=== PATIENT | female | born 1990 | race Caucasian/White ===

== ENCOUNTER 2017-12-06 07:51 | Observation (INO) ==
--- NOTE | 2017-12-06 08:33 | Emergency Department Note ---
ED Disposition Clinical Impression: First trimester , Acute appendicitis Disposition: Still a Patient Condition on Discharge: Fair - Critical Care Critical Care Time: No Attestation: On 12/06/17, the high probability of a clinically significant, sudden or life threatening deterioration of the following system(s) required my full and direct attention, intervention and personal management. The time I documented below is in addition to time spent performing reported procedures but includes the following listed in this critical care notation. Medical Decision Making - Nasim Inquiry Pt receiving controlled substance: No Nasim was queried for this patient: No Vital Signs: 12/06/17 07:55 12/06/17 09:00 12/06/17 10:45 Temperature 97.6 F Temperature Source Oral Pulse Rate [Right Brachial] 85 74 86 Respiratory Rate 20 20 18 Blood Pressure [Right Arm] 126/82 102/64 117/80 Blood Pressure Mean [Right Arm] 96 76 92 Blood Pressure Source [Right Arm] Automatic Cuff Automatic Cuff Automatic Cuff Blood Pressure Position [Right Arm] Sitting Sitting Sitting 02 Sat by Pulse Oximetry 100 100 100 Oxygen Delivery Method Room Air Room Air Room Air 12/06/17 11:17 12/06/17 11:30 Temperature Temperature Source Pulse Rate [Right Brachial] 90 80 Respiratory Rate 18 16 Blood Pressure [Right Arm] 119/75 124/70 Blood Pressure Mean [Right Arm] 89 88 Blood Pressure Source [Right Arm] Automatic Cuff Automatic Cuff Blood Pressure Position [Right Arm] Sitting Sitting 02 Sat by Pulse Oximetry 100 100 Oxygen Delivery Method Room Air Room Air - Lab Data Lab Results 12/06/17 08:35: WBC 13.2 H, RBC 4.47, Hgb 12.9, Hct 38.7, MCV 86.6, MCH 28.9, MCHC 33.4, RDW 13.0, Plt Count 227, MPV 7.7, Neut % (Auto) 86.2 H, Lymph % (Auto ) 9.7 L, Taylor % (Auto) 3.9, Eos % (Auto) 0.2, Baso % (Auto) 0.1, Neut # (Auto) 11.3 H, Lymph # (Auto) 1.3, Taylor # (Auto) 0.5, Eos # (Auto) 0.0, Baso # (Auto) 0.0, Total Counted 100, Neutrophils % (Manual) 89 H, Lymphocytes % (Manual) 7 L , Monocytes % (Manual) 4, Platelet Estimate Normal, RBC Morphology Not Reportable 12/06/17 08:35: Sodium 134 L, Potassium 3.2 L, Chloride 98, Carbon Dioxide 23, Anion Gap 13.0, BUN 8, Creatinine 0.76, Estimated Creat Clear 96, Estimated GFR 92, Est GFR ( Amer) 111, Glucose 114 H, Calcium 10.0, Total Bilirubin 0.4 , AST 14 L, ALT 32, Alkaline Phosphatase 74, Total Protein 8.1, Albumin 4.2, Globulin 3.9 H, Albumin/Globulin Ratio 1.1, HCG, Quant [id number] H 12/06/17 08:35: Lactic Acid 2.1 H 12/06/17 08:57: Blood Type A Positive 12/06/17 10:00: Urine Color Yellow, Urine Appearance Clear, Urine pH 8.0, Ur Specific [place] 1.020, Urine Protein Negative, Urine Glucose (UA) Negative, Urine Ketones Negative, Urine Blood 2+, Urine Nitrate Negative, Urine Bilirubin Negative, Urine Urobilinogen 0.2, Ur Leukocyte Esterase Negative, Urine RBC 5-10 , Urine WBC 3-5, Ur Squamous Epith Cells 5-10, Urine Bacteria 2+, Urine Mucus Trace 12/06/17 10:00: Urine Opiates Screen Positive H, Ur Barbituates Screen Negative , Ur Phencyclidine Scrn Negative, Ur Amphetamines Screen Negative, U Methamphetamines Scrn Negative, U Benzodiazepines Scrn Negative, Urine Cocaine Screen Negative, U Marijuana (THC) Screen Negative Result diagrams: 12/06/17 08:35 12/06/17 08:35 Orders (Tests/Meds): ED MEDICATIONS Discontinued Medications Generic Name Dose Route Start Last Admin Trade Name Freq PRN Reason Stop Dose Admin Diatrizoate Meglum/Diatrizoate Sod 30 ml 12/06/17 11:04 12/06/17 11:22 Gastrografin 66%-10% 30ml PO 12/06/17 11:05 Not Given ONCE ONE Famotidine 20 mg 12/06/17 08:42 12/06/17 08:53 Pepcid 20mg/2ml Vial IV 12/06/17 08:43 20 mg ONCE ONE Administration Sodium Chloride 1,000 mls @ 999 mls/hr 12/06/17 08:45 12/06/17 08:53 Sod Chlor 0.9% 1000ml Bag IV 12/06/17 09:45 999 mls/hr .Q1H1M ONI Administration Sodium Chloride 1,000 mls @ 999 mls/hr 12/06/17 11:15 12/06/17 11:54 Sod Chlor 0.9% 1000ml Bag IV 12/06/17 12:15 999 mls/hr .Q1H1M ONI Administration Morphine Sulfate 2 mg 12/06/17 08:42 12/06/17 08:59 Morphine 2mg/2ml Syringe IV 12/06/17 08:43 2 mg ONCE ONE Administration Potassium Chloride 20 meq 12/06/17 10:18 12/06/17 10:45 Klor-Con 20meq Tablet PO 12/06/17 10:19 Not Given ONCE ONE Promethazine HCl 12.5 mg 12/06/17 08:42 12/06/17 08:53 Phenergan 25mg/Ml 1ml Vial IV 12/06/17 08:43 12.5 mg ONCE ONE Administration Sodium Chloride 25 ml 12/06/17 08:42 12/06/17 08:59 Sod Chlor 0.9% 25ml Bag IV 12/06/17 08:43 25 ml ONCE ONE Administration ORDERS Category Date Time Status Lactic Acid Follow Up (4 hr) Stat Lab 12/06/17 09:05 Ordered Urine Culture Stat Micro 12/06/17 10:00 Received - CT Data CT Scan: Abdomen, Pelvis Time Received: 12:[address] Reviewed: Yes: I have viewed the radiologist's interpretation Preliminary Findings: Abnormal Findings Narrative: IMPRESSION: 1. Acute appendicitis. The appendix is retrocecal. No abscess or free air. 2. Low-density changes in the central aspect of the uterus with some enhancement peripherally consistent with the inferior gestation as seen on recent ultrasound which was nonviable Significant findings called to Cole Rodgers MD on 12/06/2017 12:11 PM. Dictated By: Hernán Nevarez MD Signed By: <Electronically signed by Hernán Nevarez MD in OV> 12/06/17 1212 DD/ 1201 - US Data US Images: Pelvis ED US Reviewed: Yes: I have viewed radiologist's interpretation Findings Narrative: IMPRESSION: 1. Irregular-appearing intrauterine gestational sac with no obvious pole. Nonviable gestation. 2. Right ovary not well demonstrated. No obvious anomalies apparent Medical Decision Narrative: reportted 0932 IMPRESSION: 1. Irregular-appearing intrauterine gestational sac with no obvious pole. Nonviable gestation. 2. Right ovary not well demonstrated. No obvious anomalies apparent [id number] her Ob Dr Harris. Dr Harris called back and I reviewed the above findings with Dr. lAves. Who stated that the ultrasound seems unchanged from her prior ultrasound last week. This was a planned due to a miscarriage. Discussed with Dr. Alves the possibility of appendicitis and she agreed to undergo a CT scan exclude appendicitis. Dr. Alves recommended that the patient to contact our office if she wishes to have a D&C. As the patient is the one O chose to take the pills instead of D&C per Dr. Alves. 1230 IMPRESSION: 1. Acute appendicitis. The appendix is retrocecal. No abscess or free air. 2. Low-density changes in the central aspect of the uterus with some enhancement peripherally consistent with the inferior gestation as seen on recent ultrasound which was nonviable Significant findings called to Cole Rodgers MD on 12/06/2017 12:11 PM. I discussed the above findings with the patient was agreeable to see our local surgeon for appendectomy. Called Dr. Cameron Beck for admission and he agreed to admit the patient he will taken to the operating room. He will admit to his service Female Urogenital HPI - General Chief complaint: OB/Uterine Contractions Stated complaint: abdominal pain Time Seen by Provider: 12/06/17 08:10 Mode of Arrival: Wheelchair Limitations: No Limitations Description of Symptoms (Recalled from ER Triage Doc. by RN): Pt reports her OB told her 4 days ago that she was having a miscarriage, states she was given medication to help her begin to pass the fetus. Pt reports she had a recent d& c so states her OB didn't want to do another d&c right away so she was given medication instead. Pt reports lower back pain, nausea, vomiting and ismael leg pain, reports symptoms began at 11pm lastnight. Pt reports she was 5 weeks gestation. - History of Present Illness HPI Narrative: This is 27 years old white para 0 A1 with a still born child due to prteeclampsia. The patient does not recall her LMP. But she was told 2 weeks ago, that she is 5 weeks so she is approximately 7 weeks. The patient did have a D&C for her second on April 2017 . Also, this she decided to have a miscarriage and her OB doctor did not want to do another D &C she was given a Cytotec prescription on December 03 and I repeated those on December 04. Since then she has been passing brownish vaginal discharge and lose bowel movement. Since last night she has been experiencing sharp lower abdominal cramps radiating to her back associated with nausea and vomited twice. She denies having fever or chills chest pain shortness of breath or palpitations. The patient has a history of clotting disorder and she has been using aspirin on Lovenox up to November 29 when she was asked to stop the medication before starting Cytotec. MD Complaint: vaginal discharge Onset (ago): day(s) (Vaginal discharge for 3 days lower abdominal cramps for 12 hour.) Radiation: other (Pain is radiating to her back.) Severity: severe Quality: cramping, sharp Duration: intermittent Relieving factors: none Exacerbating factors: none Vaginal discharge: other (Brown vaginal discharge.) Sexual activity: yes : yes - Related Data : 3 Para: 0 (Stillbirth.) A: 1 Home Medications Medication Instructions Recorded Confirmed No Known Home Medications 12/06/17 12/06/17 Allergies Allergy/AdvReac Type Severity Reaction Status Date / Time No Known Allergies Allergy Verified 12/06/17 08:04 [facility] History I have reviewed the patient's past medical history: Yes (I reviewed her prescriptions from December 03, 2017. ) Medical History: Denies:: Diabetes Mellitus Type 1, Diabetes Mellitus Type 2 - Social History Alcohol Intake: never - Psychiatric History Expresses thoughts of harming self/others: None Suicide Plan Description: No Plan ROS Obtained: Yes All systems reviewed & no additional complaints Physical Exam - General General appearance: alert, in no apparent distress Comment: She is in discomfort but she is in no cardiopulmonary distress. - Head Head exam: atraumatic, normocephalic, normal inspection - Eye Eye exam: Present: normal appearance, PERRL, EOMI - ENT ENT exam: Present: normal exam, normal oropharynx, mucous membranes moist, TM's normal bilaterally, normal external ear exam - Neck Neck exam: Present: normal inspection, full ROM, trachea midline. Absent: meningismus, lymphadenopathy - Chest Chest inspection: Present: normal inspection, symmetric chest wall rise. Absent : tenderness - Respiratory Respiratory exam: Present: normal lung sounds bilaterally. Absent: respiratory distress - Cardiovascular Cardiovascular exam: Present: regular rate, normal rhythm. Absent: JVD - Abdominal Exam Abdominal exam: Present: soft, tenderness, normal bowel sounds, other (Lower abdominal tenderness with no rebound or cross tenderness no guarding no rigidity. ). Absent: distention, guarding, rebound, rigidity - External exam: Present: normal external exam Bimanual exam: Present: right adnexal tenderness, other (VV WNL, CX is closed, uterus small retroverted and minute brownish vaginal discharge. ). Absent: cervical motion tenderness, adnexal tenderness - Extremities Exam Extremities exam: Present: normal inspection, full ROM, normal capillary refill. Absent: calf tenderness - Back Exam Back exam: Present: normal inspection. Absent: tenderness - Neurological Exam Neurological exam: Present: alert, oriented X3, CN II-XII intact, motor sensory deficit, reflexes normal - Psychiatric Psychiatric exam: Present: normal affect, normal mood - Skin Skin exam: Present: warm, dry, intact, normal color - Lymphatic Lymphatic Findings: no adenopathy
[2017-12-06 08:52] LABS: Basophils % 0.1 % (0.1-2.0); Eosinophils % 0.2 % (0.1-12.0); Hematocrit 38.7 % (37.0-47.0); Hemoglobin 12.9 g/dL (12.2-16.2); Lymphocytes # 1.3 K/mm3 (0.7-4.5); Lymphocytes % 9.7 K/mm3 (10-50); Mean Corpuscular HGB Conc 33.4 g/dL (31.8-35.4); Mean Corpuscular Hemoglobin 28.9 pg (27.0-31.2); Mean Corpuscular Volume 86.6 fl (81-99); Mean Platelet Volume 7.7 fl (7.4-10.4); Monocytes # 0.5 K/mm3 (0.1-1.0); Monocytes % 3.9 % (1.7-9.3); Neutrophils # 11.3 K/mm3 (1.8-7.8); Neutrophils % 86.2 % (37.0-80.0); Platelet Count 227 K/mm3 (142-424); Red Blood Count 4.47 M/mm3 (4.20-5.40); White Blood Count 13.2 K/mm3 (4.8-10.8)
[2017-12-06 09:07] LABS: Potassium 3.2 mmoL/L (3.5-5.1)
[2017-12-06 09:08] LABS: Albumin Level 4.2 gm/dL (3.4-5.0); Albumin/Globulin Ratio 1.1 (1.1-1.8); Bilirubin,Total 0.4 mg/dL (0.2-1.0); Globulin 3.9 gm/dl (1.3-3.2); Total Protein,Serum 8.1 gm/dL (6.4-8.2)
[2017-12-06 09:37] LABS: Lymphocytes % 7 % (10-50); Monocytes % 4 % (2-9); Neutrophils % 89 % (42-76); Total Cells Counted 100
[2017-12-06 10:06] LABS: Appearance,Urine CLEAR (Clear); Bilirubin,Urine Negative (Negative); Blood, Urine 2+ (Negative); Color,Urine YELLOW (Yellow); Glucose,Urine (UA) Negative (Negative); Ketones,Urine Negative (Negative); Leukocyte Esterase,Urine Negative (Negative); Microscopic, Urine URINE MICROSCOPIC (MICROSCOPIC); Protein,Urine Negative (Negative); Urobilinogen,Urine 0.2 EU/dl (0.2)
[2017-12-06 10:13] LABS: Amphetamine/Metha Screen,Urine Negative ng/mL (<1000); Barbiturates Screen,Urine Negative ng/mL (<200); Benzodiazepines Screen,Urine Negative ng/mL (200); Cannabinoid Screen,Urine Negative ng/mL (<50); Cocaine Screen,Urine Negative ng/g (<300); Methadone Screen,Urine Negative ng/mL (<300); Opiate Screen,Urine Positive ng/mL (<300); Phencyclidine Screen,Urine Negative ng/mL (<25)
[2017-12-06 10:17] LABS: Bacteria,Urine 2+ /lpf; Mucus,Urine Trace /lpf
--- NOTE | 2017-12-06 13:16 | Pharmacy Consult Notes ---
[facility] Pharmacy VTE Monitoring - Patient Demographics Admission date: 12/06/17 Report Date: 12/06/17 Time: 13:15 Allergies/Adverse Reactions: Patient Allergies No Known Allergies Allergy (Verified 12/06/17 08:04) Height: 1.5 m Weight: 53.977 kg Patient Problems: Current Active Problems First trimester (Acute) Acute appendicitis (Acute) - VTE Risk Labs: VTE Related Lab Results Hgb 12.9 g/dL (12.2-16.2) 12/06/17 08:35 Hct 38.7 % (37.0-47.0) 12/06/17 08:35 Plt Count 227 K/mm3 (142-424) 12/06/17 08:35 BUN 8 mg/dL (7-18) 12/06/17 08:35 Creatinine 0.76 mg/dL (0.55-1.02) 12/06/17 08:35 Estimated Creat Clear 96 mL/min (0-300) 12/06/17 08:35 Clinical Trial Participant: No - Prophylaxis VTE Prophylaxis Ordered?: Yes Types of VTE Prophylaxis: TEDS Knee High
--- NOTE | 2017-12-06 14:14 | Progress Note ---
[facility] Anesthesia Checklist - Patient Identification Patient Identification: Arm Band, Verbal (Name & ) - Structural Data Admitted From: Home Planned Operative Procedure/s: lap appy Consent for Planned Operative Procedure(s) Verified: Yes Verified Documents: Surgical Consent - NPO Status Verified Time NPO: 22:00 - Chart Verification Results Verified: CBC, BMP - Additional verifications Patient : No Anesthesia Reactions: No Hx Blood Transfusions: No Blood Transfusion Reaction: No Cephalosporin Allergy: No Previous Colonoscopy: No - Cardiovascular Assessment Heart Sounds: S1 & S2 Pulse Strength: Baseline Pulse Rhythm: Regular Peripheral Edema: No - Airway Assessment C-Spine Mobility Assessed: Yes TMJ Mobility Assessed: Yes Dentition: Good Dentition - Neurological Assessment Level of Consciousness: Awake, Alert, Appropriate Hx Seizures: No Numbness or tingling in extremities: No - Anesthesia Plan Anesthesia Risk discussed: Yes Anesthesia Plan: Verified ASA Class: II Anesthesia Type: MAC [facility] Anesthesia HX I have reviewed the patient's past medical history: Yes Medical History: Denies:: Cancer, Diabetes Mellitus Type 1, Diabetes Mellitus Type 2, MRSA, Seizures Other Medical History: Denies: Blood Transfusion Reaction Other Surgeries: Yes: Dilation and Curettage Amputation: No Fractures: No *Family Hx:: Heart Attack, Hyperlipidemia, Hypertension
--- NOTE | 2017-12-06 15:09 | History & Physical Report ---
HPI HPI: ABDOMINAL PAIN Patient is a 27-year-old white female. She had recently been placed on Cytotec. This was several days ago. She states that yesterday evening she had developed some periumbilical pain. She thought this may be cramping however it became much more severe today and more localized to the right lower quadrant. She presented to the emergency department where she was seen and evaluated. She did undergo transvaginal ultrasound which revealed nonviable gestational sac. She underwent CT scan of the abdomen and pelvis which revealed findings reportedly of non-complicated equivocal appendicitis. Surgery was contacted and plan was made for admission and preparation for appendectomy. [facility] History Medical History: Denies:: Cancer, Diabetes Mellitus Type 1, Diabetes Mellitus Type 2, MRSA, Seizures Other Medical History: Denies: Blood Transfusion Reaction Other Surgeries: Yes: Dilation and Curettage Amputation: No Fractures: No - *Social History Educational Level: Completed High School Smoking Status: Never smoker Alcohol Intake: never Occupational Status: unemployed Housing: house - Psychiatric History Expresses thoughts of harming self/others: None Suicide Plan Description: No Plan *Family Hx:: Heart Attack, Hyperlipidemia, Hypertension Para: 0 (Stillbirth.) A: 1 Meds Home Medications Medication Instructions Recorded Confirmed Type No Known Home Medications 12/06/17 12/06/17 History Allergies Allergy/AdvReac Type Severity Reaction Status Date / Time No Known Allergies Allergy Verified 12/06/17 08:04 Exam Vital signs and Labs for Last 24 Hours: Temp Pulse Resp BP Pulse Ox 98.1 F 86 18 121/77 100 12/06/17 13:42 12/06/17 13:42 12/06/17 13:42 12/06/17 13:42 12/06/17 13:42 Laboratory Results - last 24 hr 12/06/17 08:35: WBC 13.2 H, RBC 4.47, Hgb 12.9, Hct 38.7, MCV 86.6, MCH 28.9, MCHC 33.4, RDW 13.0, Plt Count 227, MPV 7.7, Neut % (Auto) 86.2 H, Lymph % (Auto ) 9.7 L, [place] % (Auto) 3.9, Eos % (Auto) 0.2, Baso % (Auto) 0.1, Neut # (Auto) 11.3 H, Lymph # (Auto) 1.3, [place] # (Auto) 0.5, Eos # (Auto) 0.0, Baso # (Auto) 0.0, Total Counted 100, Neutrophils % (Manual) 89 H, Lymphocytes % (Manual) 7 L , Monocytes % (Manual) 4, Platelet Estimate Normal, RBC Morphology Not Reportable 12/06/17 08:35: Sodium 134 L, Potassium 3.2 L, Chloride 98, Carbon Dioxide 23, Anion Gap 13.0, BUN 8, Creatinine 0.76, Estimated Creat Clear 96, Estimated GFR 92, Est GFR ( Amer) 111, Glucose 114 H, Calcium 10.0, Total Bilirubin 0.4 , AST 14 L, ALT 32, Alkaline Phosphatase 74, Total Protein 8.1, Albumin 4.2, Globulin 3.9 H, Albumin/Globulin Ratio 1.1, HCG, Quant [id number] H 12/06/17 08:35: Lactic Acid 2.1 H 12/06/17 08:57: Blood Type A Positive 12/06/17 10:00: Urine Color Yellow, Urine Appearance Clear, Urine pH 8.0, Ur Specific [place] 1.020, Urine Protein Negative, Urine Glucose (UA) Negative, Urine Ketones Negative, Urine Blood 2+, Urine Nitrate Negative, Urine Bilirubin Negative, Urine Urobilinogen 0.2, Ur Leukocyte Esterase Negative, Urine RBC 5-10 , Urine WBC 3-5, Ur Squamous Epith Cells 5-10, Urine Bacteria 2+, Urine Mucus Trace 12/06/17 10:00: Urine Opiates Screen Positive H, Ur Barbituates Screen Negative , Ur Phencyclidine Scrn Negative, Ur Amphetamines Screen Negative, U Methamphetamines Scrn Negative, U Benzodiazepines Scrn Negative, Urine Cocaine Screen Negative, U Marijuana (THC) Screen Negative 12/06/17 13:00: Lactic Acid Fup @ 4Hr 0.9 I & O for Last 24 hours: Intake & Output 12/04/17 12/05/17 12/06/17 12/07/17 11:59 11:59 11:59 11:59 Intake Total 1999 Balance 1999 Weight 119 lb 119 lb - Constitutional no acute distress - *Routine Respiratory Exam Present: CTA bilaterally - *Routine Cardiovascular Exam Present: RRR - *Routine Abdominal Exam Present: soft, tenderness Comments: She has tenderness with voluntary guarding and rebound in the right lower quadrant. Results - Results Lab Results Last 24 Hours:: Laboratory Results - last 24 hr 12/06/17 08:35: WBC 13.2 H, RBC 4.47, Hgb 12.9, Hct 38.7, MCV 86.6, MCH 28.9, MCHC 33.4, RDW 13.0, Plt Count 227, MPV 7.7, Neut % (Auto) 86.2 H, Lymph % (Auto ) 9.7 L, [place] % (Auto) 3.9, Eos % (Auto) 0.2, Baso % (Auto) 0.1, Neut # (Auto) 11.3 H, Lymph # (Auto) 1.3, [place] # (Auto) 0.5, Eos # (Auto) 0.0, Baso # (Auto) 0.0, Total Counted 100, Neutrophils % (Manual) 89 H, Lymphocytes % (Manual) 7 L , Monocytes % (Manual) 4, Platelet Estimate Normal, RBC Morphology Not Reportable 12/06/17 08:35: Sodium 134 L, Potassium 3.2 L, Chloride 98, Carbon Dioxide 23, Anion Gap 13.0, BUN 8, Creatinine 0.76, Estimated Creat Clear 96, Estimated GFR 92, Est GFR ( Amer) 111, Glucose 114 H, Calcium 10.0, Total Bilirubin 0.4 , AST 14 L, ALT 32, Alkaline Phosphatase 74, Total Protein 8.1, Albumin 4.2, Globulin 3.9 H, Albumin/Globulin Ratio 1.1, HCG, Quant [id number] H 12/06/17 08:35: Lactic Acid 2.1 H 12/06/17 08:57: Blood Type A Positive 12/06/17 10:00: Urine Color Yellow, Urine Appearance Clear, Urine pH 8.0, Ur Specific [place] 1.020, Urine Protein Negative, Urine Glucose (UA) Negative, Urine Ketones Negative, Urine Blood 2+, Urine Nitrate Negative, Urine Bilirubin Negative, Urine Urobilinogen 0.2, Ur Leukocyte Esterase Negative, Urine RBC 5-10 , Urine WBC 3-5, Ur Squamous Epith Cells 5-10, Urine Bacteria 2+, Urine Mucus Trace 12/06/17 10:00: Urine Opiates Screen Positive H, Ur Barbituates Screen Negative , Ur Phencyclidine Scrn Negative, Ur Amphetamines Screen Negative, U Methamphetamines Scrn Negative, U Benzodiazepines Scrn Negative, Urine Cocaine Screen Negative, U Marijuana (THC) Screen Negative 12/06/17 13:00: Lactic Acid Fup @ 4Hr 0.9 Assessment and Plan - Assessment and plan all Dx Assessment and Plan for all problems:: Clinical scenario and objective findings consistent with acute appendicitis. Plan for laparoscopic with possibly open appendectomy.
--- NOTE | 2017-12-06 16:22 | Operative Note ---
Date of procedure: 12/06/17 Pre-op Diagnosis:: Acute appendicitis Post-op Diagnosis:: Same Procedure performed:: Laparoscopic appendectomy Surgeon:: Cameron Beck MD Anesthesia: GETEvy Estimated blood loss (mL): 15 Clinical Note:: Patient is a 27-year-old white female. Beginning yesterday evening approximately 11 PM she had developed some periumbilical pain. It became more severe and more localized to the right lower quadrant. She had presented to [facility] emergency department where she was seen and evaluated. Of note, the patient had recently started Cytotec. [facility] emergency department included a CT scan which revealed findings consistent with unequivocal appendicitis. Surgery was contacted and she was admitted for inpatient management and preparations for appendectomy. Operative findings:: She had an acute suppurative appendicitis in a retrocecal location. Operative note:: Consent was obtained. Patient was taken to the operating room. She was given preoperative intravenous antibiotics. General anesthesia was induced via endotracheal tube. Soares catheter was placed. Abdomen was prepped and draped in the standard surgical fashion. Subumbilical skin incision was made and while performing abdominal wall lift Veress needle was inserted. CO2 pneumoperitoneum was achieved to 15 mmHg. 12 mm optical trocar was inserted the umbilicus. There is noted to be some cloudy fluid in the right pelvis and paracolic gutter. She was positioned in Trendelenburg left side down. 5 mm suprapubic trocar was inserted. Additional 5 mm trocar was inserted in the right upper abdomen. The cecum was retracted medially and the appendix was identified in a retrocecal location. It was acutely inflamed and suppurative. Appendix was grasped with an endoscopic Beaver. The lateral peritoneal attachments were divided with Toño ultrasonic harmonic tyshawn. Mobilization of the appendix was rather difficult due to the retrocecal location. There was a lot of periappendiceal edema. Ultimately the appendix was freed from its retrocecal location. The mesoappendix was carefully divided with Toño ultrasonic harmonic tyshawn. The pedis artery was carefully coagulated with Toño ultrasonic harmonic tyshawn. Dissection was carried down to the appendiceal base. The appendix was divided at its base with an endoscopic BERNARDO linear cutting stapling device. The appendix was placed within an Endo Catch retrieval device and removed from the peritoneal cavity via the umbilical trocar site. Pericecal location and pelvis were irrigated and aspirated until clear. There is good hemostasis. Trochars were removed as CO2 pneumoperitoneum was evacuated. Fascia at the umbilicus was closed with 0 Vicryl suture. Local anesthetic was infiltrated. Skin incisions were closed with 4-0 Monocryl in a subcuticular fashion. Steri-Strips and clean dry sterile dressings were applied. Condition: stable Disposition: PACU Specimens:: Appendix Complications:: None immediately apparent
--- NOTE | 2017-12-06 16:28 | Progress Note ---
[facility] Anesthesia Record Part I Intake, IV Amount: 1,000 Estimated blood loss (mL): 0 Urine output (mL): 200 Blood Pressure: 125/62 SaO2: 98 Pulse Rate: 77 Respiratory Rate: 12 Temperature: 97.7 F Patient is:: Stable Stable to PACU at:: 16:25
--- NOTE | 2017-12-06 16:28 | Progress Note ---
[facility] Anesthesia Record Part II Discharge Time: 16:55 Destination: floor PACU nurse assessment reviewed?: Yes Patient Condition:: Good Anesthesia Complications:: None
[2017-12-07 06:27] LABS: Basophils % 0.1 % (0.1-2.0); Eosinophils % 0.1 % (0.1-12.0); Lymphocytes # 1.6 K/mm3 (0.7-4.5); Lymphocytes % 14.1 K/mm3 (10-50); Mean Corpuscular HGB Conc 32.9 g/dL (31.8-35.4); Mean Corpuscular Hemoglobin 29.4 pg (27.0-31.2); Mean Corpuscular Volume 89.5 fl (81-99); Monocytes # 0.4 K/mm3 (0.1-1.0); Monocytes % 3.9 % (1.7-9.3); Neutrophils # 9.3 K/mm3 (1.8-7.8); Neutrophils % 81.8 % (37.0-80.0); Platelet Count 211 K/mm3 (142-424); Red Blood Count 3.66 M/mm3 (4.20-5.40); Red Cell Distribution Width 13.4 % (11.5-17.5); White Blood Count 11.4 K/mm3 (4.8-10.8)
[2017-12-07 06:37] LABS: Hematocrit 32.6 % (37.0-47.0); Hemoglobin 10.7 g/dL (12.2-16.2)
--- NOTE | 2017-12-07 07:06 | Progress Note ---
Subjective Patient reports: feels better, pain is less Exam Vital signs and Labs for Last 24 Hours: Temp Pulse Resp BP Pulse Ox 97.6 F 77 16 98/57 98 12/07/17 04:00 12/07/17 04:00 12/07/17 04:00 12/07/17 04:00 12/07/17 04:00 Laboratory Results - last 24 hr 12/06/17 08:35: WBC 13.2 H, RBC 4.47, Hgb 12.9, Hct 38.7, MCV 86.6, MCH 28.9, MCHC 33.4, RDW 13.0, Plt Count 227, MPV 7.7, Neut % (Auto) 86.2 H, Lymph % (Auto ) 9.7 L, [place] % (Auto) 3.9, Eos % (Auto) 0.2, Baso % (Auto) 0.1, Neut # (Auto) 11.3 H, Lymph # (Auto) 1.3, [place] # (Auto) 0.5, Eos # (Auto) 0.0, Baso # (Auto) 0.0, Total Counted 100, Neutrophils % (Manual) 89 H, Lymphocytes % (Manual) 7 L , Monocytes % (Manual) 4, Platelet Estimate Normal, RBC Morphology Not Reportable 12/06/17 08:35: Sodium 134 L, Potassium 3.2 L, Chloride 98, Carbon Dioxide 23, Anion Gap 13.0, BUN 8, Creatinine 0.76, Estimated Creat Clear 96, Estimated GFR 92, Est GFR ( Amer) 111, Glucose 114 H, Calcium 10.0, Total Bilirubin 0.4 , AST 14 L, ALT 32, Alkaline Phosphatase 74, Total Protein 8.1, Albumin 4.2, Globulin 3.9 H, Albumin/Globulin Ratio 1.1, HCG, Quant [id number] H 12/06/17 08:35: Lactic Acid 2.1 H 12/06/17 08:57: Blood Type A Positive 12/06/17 10:00: Urine Color Yellow, Urine Appearance Clear, Urine pH 8.0, Ur Specific [place] 1.020, Urine Protein Negative, Urine Glucose (UA) Negative, Urine Ketones Negative, Urine Blood 2+, Urine Nitrate Negative, Urine Bilirubin Negative, Urine Urobilinogen 0.2, Ur Leukocyte Esterase Negative, Urine RBC 5-10 , Urine WBC 3-5, Ur Squamous Epith Cells 5-10, Urine Bacteria 2+, Urine Mucus Trace 12/06/17 10:00: Urine Opiates Screen Positive H, Ur Barbituates Screen Negative , Ur Phencyclidine Scrn Negative, Ur Amphetamines Screen Negative, U Methamphetamines Scrn Negative, U Benzodiazepines Scrn Negative, Urine Cocaine Screen Negative, U Marijuana (THC) Screen Negative 12/06/17 13:00: Lactic Acid Fup @ 4Hr 0.9 12/06/17 14:42: HCG, Quant [id number] H 12/06/17 15:20: Urine Color Yellow, Urine Appearance Clear, Urine pH 6.0, Ur Specific [place] 1.010, Urine Protein Negative, Urine Glucose (UA) Negative, Urine Ketones Negative, Urine Blood Trace-i, Urine Nitrate Negative, Urine Bilirubin Negative, Urine Urobilinogen 0.2, Ur Leukocyte Esterase Negative, Urine RBC Occasional, Urine WBC Occasional, Ur Squamous Epith Cells Occasional, Urine Bacteria Trace 12/07/17 05:20: WBC 11.4 H, RBC 3.66 L, Hgb 10.7 L D, Hct 32.6 L, MCV 89.5, MCH 29.4, MCHC 32.9, RDW 13.4, Plt Count 211, MPV 8.0, Neut % (Auto) 81.8 H, Lymph % (Auto) 14.1, [place] % (Auto) 3.9, Eos % (Auto) 0.1, Baso % (Auto) 0.1, Neut # ( Auto) 9.3 H, Lymph # (Auto) 1.6, [place] # (Auto) 0.4, Eos # (Auto) 0.0, Baso # ( Auto) 0.0 I & O for Last 24 hours: Intake & Output 12/04/17 12/05/17 12/06/17 12/07/17 11:59 11:59 11:59 11:59 Intake Total 4603 / 4603 Balance 4603 / 4603 Weight 119 lb 122 lb 4 oz - *Routine Abdominal Exam Present: soft Progress Note: A&P Assessment and Plan for All Diagnoses:: Plan for discharge home
--- NOTE | 2017-12-07 07:08 | Discharge Summary ---
General - General Admission date:: 12/06/17 Discharge date: 12/07/17 HPI HPI: ABDOMINAL PAIN Patient is a 27-year-old white female. She had recently been placed on Cytotec by her shook splicer. This was several days ago. She states that evening of she had developed some periumbilical pain. She thought this may be cramping however it became much more severe and more localized to the right lower quadrant. She presented to the emergency department where she was seen and evaluated. She did undergo transvaginal ultrasound which revealed nonviable gestational sac. She underwent CT scan of the abdomen and pelvis which revealed findings reportedly of non-complicated unequivocal appendicitis. Surgery was contacted and plan was made for admission and preparation for appendectomy. Hospital Course Hospital Course: Shortly after admission and arrangements were made for operative intervention patient was taken to the operating room. She underwent successful laparoscopic appendectomy. She was found to have an acute suppurative nonperforated appendicitis. Appendix was in a retrocecal location which may procedure somewhat difficult. Please see operative dictation for complete details. She was admitted postoperatively for continued inpatient management and convalescence. She was continued on perioperative Unasyn. She was given a full liquid diet. Following morning she was feeling better. She was tolerating full liquid diet without difficulty. No nausea. White blood cell count had improved. Plan was made for discharge home. Objective Vital signs: Temp Pulse Resp BP Pulse Ox 97.6 F 77 16 98/57 98 12/07/17 04:00 12/07/17 04:00 12/07/17 04:00 12/07/17 04:00 12/07/17 04:00 Results Labs on day of discharge: Labs from last 24 hours 12/07/17 12/06/17 12/06/17 05:20 15:20 14:42 WBC 11.4 H RBC 3.66 L Hgb 10.7 L D Hct 32.6 L MCV 89.5 MCH 29.4 MCHC 32.9 RDW 13.4 Plt Count 211 MPV 8.0 Neut % (Auto) 81.8 H Lymph % (Auto) 14.1 [place] % (Auto) 3.9 Eos % (Auto) 0.1 Baso % (Auto) 0.1 Neut # (Auto) 9.3 H Lymph # (Auto) 1.6 [place] # (Auto) 0.4 Eos # (Auto) 0.0 Baso # (Auto) 0.0 Total Counted Neutrophils % (Manual) Lymphocytes % (Manual) Monocytes % (Manual) Platelet Estimate RBC Morphology Sodium Potassium Chloride Carbon Dioxide Anion Gap BUN Creatinine Estimated Creat Clear Estimated GFR Est GFR ( Amer) Glucose Lactic Acid Lactic Acid Fup @ 4Hr Calcium Total Bilirubin AST ALT Alkaline Phosphatase Total Protein Albumin Globulin Albumin/Globulin Ratio HCG, Quant 63062 H Urine Color Yellow Urine Appearance Clear Urine pH 6.0 Ur Specific [place] 1.010 Urine Protein Negative Urine Glucose (UA) Negative Urine Ketones Negative Urine Blood Trace-i Urine Nitrate Negative Urine Bilirubin Negative Urine Urobilinogen 0.2 Ur Leukocyte Esterase Negative Urine RBC Occasional Urine WBC Occasional Ur Squamous Epith Cells Occasional Urine Bacteria Trace Urine Mucus Urine Opiates Screen Ur Barbituates Screen Ur Phencyclidine Scrn Ur Amphetamines Screen U Methamphetamines Scrn U Benzodiazepines Scrn Urine Cocaine Screen U Marijuana (THC) Screen Blood Type 12/06/17 12/06/17 12/06/17 13:00 10:00 10:00 WBC RBC Hgb Hct MCV MCH MCHC RDW Plt Count MPV Neut % (Auto) Lymph % (Auto) [place] % (Auto) Eos % (Auto) Baso % (Auto) Neut # (Auto) Lymph # (Auto) [place] # (Auto) Eos # (Auto) Baso # (Auto) Total Counted Neutrophils % (Manual) Lymphocytes % (Manual) Monocytes % (Manual) Platelet Estimate RBC Morphology Sodium Potassium Chloride Carbon Dioxide Anion Gap BUN Creatinine Estimated Creat Clear Estimated GFR Est GFR ( Amer) Glucose Lactic Acid Lactic Acid Fup @ 4Hr 0.9 Calcium Total Bilirubin AST ALT Alkaline Phosphatase Total Protein Albumin Globulin Albumin/Globulin Ratio HCG, Quant Urine Color Yellow Urine Appearance Clear Urine pH 8.0 Ur Specific [place] 1.020 Urine Protein Negative Urine Glucose (UA) Negative Urine Ketones Negative Urine Blood 2+ Urine Nitrate Negative Urine Bilirubin Negative Urine Urobilinogen 0.2 Ur Leukocyte Esterase Negative Urine RBC 5-10 Urine WBC 3-5 Ur Squamous Epith Cells 5-10 Urine Bacteria 2+ Urine Mucus Trace Urine Opiates Screen Positive H Ur Barbituates Screen Negative Ur Phencyclidine Scrn Negative Ur Amphetamines Screen Negative U Methamphetamines Scrn Negative U Benzodiazepines Scrn Negative Urine Cocaine Screen Negative U Marijuana (THC) Screen Negative Blood Type 12/06/17 12/06/17 12/06/17 08:57 08:35 08:35 WBC RBC Hgb Hct MCV MCH MCHC RDW Plt Count MPV Neut % (Auto) Lymph % (Auto) [place] % (Auto) Eos % (Auto) Baso % (Auto) Neut # (Auto) Lymph # (Auto) [place] # (Auto) Eos # (Auto) Baso # (Auto) Total Counted Neutrophils % (Manual) Lymphocytes % (Manual) Monocytes % (Manual) Platelet Estimate RBC Morphology Sodium 134 L Potassium 3.2 L Chloride 98 Carbon Dioxide 23 Anion Gap 13.0 BUN 8 Creatinine 0.76 Estimated Creat Clear 96 Estimated GFR 92 Est GFR ( Amer) 111 Glucose 114 H Lactic Acid 2.1 H Lactic Acid Fup @ 4Hr Calcium 10.0 Total Bilirubin 0.4 AST 14 L ALT 32 Alkaline Phosphatase 74 Total Protein 8.1 Albumin 4.2 Globulin 3.9 H Albumin/Globulin Ratio 1.1 HCG, Quant 54772 H Urine Color Urine Appearance Urine pH Ur Specific [place] Urine Protein Urine Glucose (UA) Urine Ketones Urine Blood Urine Nitrate Urine Bilirubin Urine Urobilinogen Ur Leukocyte Esterase Urine RBC Urine WBC Ur Squamous Epith Cells Urine Bacteria Urine Mucus Urine Opiates Screen Ur Barbituates Screen Ur Phencyclidine Scrn Ur Amphetamines Screen U Methamphetamines Scrn U Benzodiazepines Scrn Urine Cocaine Screen U Marijuana (THC) Screen Blood Type A Positive 12/06/17 08:35 WBC 13.2 H RBC 4.47 Hgb 12.9 Hct 38.7 MCV 86.6 MCH 28.9 MCHC 33.4 RDW 13.0 Plt Count 227 MPV 7.7 Neut % (Auto) 86.2 H Lymph % (Auto) 9.7 L [place] % (Auto) 3.9 Eos % (Auto) 0.2 Baso % (Auto) 0.1 Neut # (Auto) 11.3 H Lymph # (Auto) 1.3 [place] # (Auto) 0.5 Eos # (Auto) 0.0 Baso # (Auto) 0.0 Total Counted 100 Neutrophils % (Manual) 89 H Lymphocytes % (Manual) 7 L Monocytes % (Manual) 4 Platelet Estimate Normal RBC Morphology Not Reportable Sodium Potassium Chloride Carbon Dioxide Anion Gap BUN Creatinine Estimated Creat Clear Estimated GFR Est GFR ( Amer) Glucose Lactic Acid Lactic Acid Fup @ 4Hr Calcium Total Bilirubin AST ALT Alkaline Phosphatase Total Protein Albumin Globulin Albumin/Globulin Ratio HCG, Quant Urine Color Urine Appearance Urine pH Ur Specific [place] Urine Protein Urine Glucose (UA) Urine Ketones Urine Blood Urine Nitrate Urine Bilirubin Urine Urobilinogen Ur Leukocyte Esterase Urine RBC Urine WBC Ur Squamous Epith Cells Urine Bacteria Urine Mucus Urine Opiates Screen Ur Barbituates Screen Ur Phencyclidine Scrn Ur Amphetamines Screen U Methamphetamines Scrn U Benzodiazepines Scrn Urine Cocaine Screen U Marijuana (THC) Screen Blood Type Discharge Plan - Patient Discharge Instructions ACTIVITY: No heavy lifting DIET: advance to your usual diet - Follow up Plan Follow up with: Cameron Beck MD [Staff Physician] - 12/24/17 Disposition: Home, Self-Senior Care Medications: Home Medications Medication Instructions Recorded Confirmed Type No Known Home Medications 12/06/17 12/06/17 History Prescriptions/Medication Reconciliation: New Hydrocod/Acet 5/325 mg [[place] 5/325mg tablet] 1 - 2 tab PO Q6HP PRN #21 tab PRN Reason: Moderate Pain No Action No Known Home Medications
[2017-12-07 07:34] VITALS: BP 112/73
== END 2017-12-07 09:18 | disposition home or self-care (01) ==
LOC: ER 07:51 → 2ND 07:51
PROVIDERS: ADMIT Surgery; ATTEND Surgery
DX: K35.80 Unspecified acute appendicitis

== ENCOUNTER 2017-12-27 09:34 | Inpatient (IN) ==
[2017-12-27 09:58] LABS: Appearance,Urine CLOUDY (Clear); Bilirubin,Urine Negative (Negative); Blood, Urine 1+ (Negative); Color,Urine YELLOW (Yellow); Glucose,Urine (UA) Negative (Negative); Ketones,Urine 1+ (Negative); Leukocyte Esterase,Urine 2+ (Negative); Microscopic, Urine URINE MICROSCOPIC (MICROSCOPIC); Protein,Urine 1+ (Negative); Specific Gravity, Urine 1.015 (1.005-1.030)
[2017-12-27 10:04] LABS: Basophils % 0.1 % (0.1-2.0); Eosinophils # 0.1 K/mm3 (0.0-0.4); Eosinophils % 0.5 % (0.1-12.0); Hemoglobin 12.3 g/dL (12.2-16.2); Lymphocytes # 1.2 K/mm3 (0.7-4.5); Lymphocytes % 7.3 K/mm3 (10-50); Mean Corpuscular HGB Conc 32.2 g/dL (31.8-35.4); Mean Corpuscular Hemoglobin 27.6 pg (27.0-31.2); Mean Corpuscular Volume 85.6 fl (81-99); Mean Platelet Volume 7.9 fl (7.4-10.4); Neutrophils # 14.1 K/mm3 (1.8-7.8); Neutrophils % 86.1 % (37.0-80.0); Platelet Count 220 K/mm3 (142-424); Red Blood Count 4.45 M/mm3 (4.20-5.40); Red Cell Distribution Width 12.6 % (11.5-17.5); White Blood Count 16.4 K/mm3 (4.8-10.8)
[2017-12-27 10:10] LABS: Bacteria,Urine 4+ /lpf; WBC,Urine 20-50 #/hpf (0-3)
[2017-12-27 10:11] LABS: Albumin Level 3.8 gm/dL (3.4-5.0); Albumin/Globulin Ratio 0.9 (1.1-1.8); Anion Gap 16.4 mEq/L (5-15); Bilirubin,Total 0.9 mg/dL (0.2-1.0); Calcium 9.4 mg/dL (8.5-10.1); Globulin 4.1 gm/dl (1.3-3.2); Potassium 3.4 mmoL/L (3.5-5.1); Total Protein,Serum 7.9 gm/dL (6.4-8.2)
[2017-12-27 10:53] LABS: Lymphocytes % 6 % (10-50); Monocytes % 6 % (2-9); Neutrophils % 86 % (42-76); Total Cells Counted 100
--- NOTE | 2017-12-27 11:57 | Emergency Department Note ---
ED Disposition Clinical Impression: Pyelonephritis Disposition: Admitted As Inpatient Condition on Discharge: Fair Time of Disposition: 11:56 - Critical Care Critical Care Time: No Attestation: On 12/27/17, the high probability of a clinically significant, sudden or life threatening deterioration of the following system(s) required my full and direct attention, intervention and personal management. The time I documented below is in addition to time spent performing reported procedures but includes the following listed in this critical care notation. Medical Decision Making - Medical Records Medical records reviewed: Yes: I reviewed the patient's medical records. - Nasim Inquiry Pt receiving controlled substance: No Vital Signs: 12/27/17 09:46 12/27/17 11:41 12/27/17 12:22 Temperature 101.4 F H 98.4 F 98.1 F Temperature Source Oral Temporal Artery Scan Oral Pulse Rate [Left Radial] 111 H 74 77 Respiratory Rate 22 18 16 Blood Pressure [Right Arm] 111/76 102/54 102/54 Blood Pressure Mean [Right Arm] 87 70 70 Blood Pressure Source [Right Arm] Automatic Cuff Manual Cuff/ Doppler Automatic Cuff Blood Pressure Position [Right Arm] Sitting Sitting Supine 02 Sat by Pulse Oximetry 98 99 99 Oxygen Delivery Method Room Air Room Air - Lab Data Lab results reviewed: Yes: I reviewed the patient's lab results. Lab Results 12/27/17 09:50: Urine Color Yellow, Urine Appearance Cloudy, Urine pH 7.0, Ur Specific [place] 1.015, Urine Protein 1+, Urine Glucose (UA) Negative, Urine Ketones 1+, Urine Blood 1+, Urine Nitrate Positive, Urine Bilirubin Negative, Urine Urobilinogen 2.0, Ur Leukocyte Esterase 2+ A, Urine RBC 5-10, Urine WBC 20 -50, Ur Squamous Epith Cells 5-10, Urine Bacteria 4+ 12/27/17 09:50: WBC 16.4 H, RBC 4.45, Hgb 12.3, Hct 38.0, MCV 85.6, MCH 27.6, MCHC 32.2, RDW 12.6, Plt Count 220, MPV 7.9, Neut % (Auto) 86.1 H, Lymph % (Auto ) 7.3 L, [place] % (Auto) 6.0, Eos % (Auto) 0.5, Baso % (Auto) 0.1, Neut # (Auto) 14.1 H, Lymph # (Auto) 1.2, [place] # (Auto) 1.0, Eos # (Auto) 0.1, Baso # (Auto) 0.0, Total Counted 100, Neutrophils % (Manual) 86 H, Band Neutrophils % 2.0, Lymphocytes % (Manual) 6 L, Monocytes % (Manual) 6, Platelet Estimate Normal 12/27/17 09:50: Sodium 132 L, Potassium 3.4 L, Chloride 95 L, Carbon Dioxide 24 , Anion Gap 16.4 H, BUN 7, Creatinine 1.01, Estimated Creat Clear 74, Estimated GFR 66, Est GFR ( Amer) 80, Glucose 116 H, Calcium 9.4, Total Bilirubin 0.9, AST 10 L, ALT 16, Alkaline Phosphatase 85, Total Protein 7.9, Albumin 3.8, Globulin 4.1 H, Albumin/Globulin Ratio 0.9 L, Amylase 233 H 12/27/17 09:50: Lipase 1338 H 12/27/17 09:50: HCG, Quant 24 H 12/27/17 10:30: Lactic Acid 1.2 Result diagrams: 12/27/17 09:50 12/27/17 09:50 Orders (Tests/Meds): ED MEDICATIONS Generic Name Dose Route Start Last Admin Trade Name Freq PRN Reason Stop Dose Admin Levofloxacin/Dextrose 750 mg in 150 mls @ 100 mls/hr 12/28/17 11:00 Levofloxacin 750mg/150ml Premix IV 01/10/18 10:59 Q24H ONI Protocol Sodium Chloride 1,000 mls @ 125 mls/hr 12/27/17 13:15 12/27/17 13:33 Sod Chlor 0.9% 1000ml Bag IV 01/26/18 13:14 125 mls/hr .Q8H ONI Administration Ketorolac Tromethamine 30 mg 12/27/17 13:08 12/27/17 17:34 Toradol 30mg/Ml Vial IV 01/26/18 13:07 30 mg Q6HP PRN Administration pain Promethazine HCl 12.5 mg 12/27/17 13:08 Phenergan 25mg/Ml 1ml Vial IV 01/26/18 13:07 Q6HP PRN Nausea And Vomiting Sodium Chloride 10 ml 12/27/17 13:08 Saline Flush 10ml Syringe IV 01/26/18 13:07 NEEDED PRN Maintain IV Site Sodium Chloride 25 ml 12/27/17 13:08 Sod Chlor 0.9% 25ml Bag IV 01/26/18 13:07 NEEDED PRN for Use with IV Promethazine Discontinued Medications Generic Name Dose Route Start Last Admin Trade Name Darrel PRN Reason Stop Dose Admin Acetaminophen 650 mg 12/27/17 09:52 12/27/17 10:05 Acetaminophen 325mg Tab PO 12/27/17 09:53 Not Given ONCE ONE Acetaminophen 1,000 mg 12/27/17 09:58 12/27/17 10:05 Tylenol 500mg Tablet PO 12/27/17 09:59 1,000 mg ONCE ONE Administration Sodium Chloride 1,000 mls @ 999 mls/hr 12/27/17 10:00 12/27/17 10:05 Sod Chlor 0.9% 1000ml Bag IV 12/27/17 11:00 999 mls/hr .Q1H1M ONI Administration Levofloxacin/Dextrose 750 mg in 150 mls @ 100 mls/hr 12/27/17 10:45 12/27/17 11:36 Levofloxacin 750mg/150ml Premix IV 01/10/18 10:44 100 mls/hr Q24H ONI Administration Protocol Lactated Ringer's 1,000 mls @ 999 mls/hr 12/27/17 10:45 12/27/17 19:08 Lactated Ringer's 1000 Ml Bag IV 12/27/17 11:45 Not Given .Q1H1M ONI Sodium Chloride 1,000 mls @ 999 mls/hr 12/27/17 11:45 12/27/17 11:36 Sod Chlor 0.9% 1000ml Bag IV 12/27/17 12:45 999 mls/hr .Q1H1M ONI Administration Ibuprofen 600 mg 12/27/17 11:11 12/27/17 11:36 Motrin 600mg Tablet PO 12/27/17 11:12 600 mg ONCE ONE Administration Iopamidol 75 ml 12/27/17 11:04 12/27/17 11:04 [id number]; 75ml Vial IV 12/27/17 11:05 75 ml ONCE ONE Administration Ondansetron HCl 4 mg 12/27/17 12:38 12/27/17 12:41 Zofran 4mg/2ml Vial IV 12/27/17 12:39 4 mg ONCE ONE Administration Sodium Chloride 10 ml 12/27/17 11:04 12/27/17 11:04 Rad-Saline Flush 10ml Syringe IV 12/27/17 11:05 10 ml ONCE ONE Administration ORDERS Category Date Time Status US transvaginal Stat Exams 12/27/17 10:02 Taken Blood Culture Stat Micro 12/27/17 10:30 Received Urine Culture Stat Micro 12/27/17 09:50 Received - CT Data CT Scan: Abdomen, Pelvis Time Received: 11:[address] Reviewed: Yes: I have reviewed the patient's CT results, I discussed the CT results w/the radiologist, I have viewed the radiologist's interpretation Findings Narrative: [address] [facility] [address] [place] [address] [place] Scan Report Signed Patient: Rita Rowley MR#: [id number] : 1990 Acct:[id number] Age/Sex: 27 / F ADM Date: 12/27/17 Loc: ER Attending Dr: Ordering Physician: Faraz Bartlett MD Date of Service: 12/27/17 Procedure(s): CT abdomen pelvis w con Accession Number(s): [id number] cc: Hernán Nevarez MD; Jason Taylor MD~ CT abdomen pelvis w con CLINICAL INDICATION: Right lower quadrant pain, recent appendectomy ITS.REASON: RLQ pain, s/p appe 3 wks ago ORDERING PHYSICIAN: Faraz Bartlett MD PATIENT AGE: 27 years COMPARISON: 12/06/2017 TECHNIQUE: Axial images obtained with sagittal and coronal reformats. All CT scans at the facility use one or more dose reduction, viz: automated exposure control; ma/kV adjustment per patient size (including targeted exams where dose is matched to indication; i.e. head); or iterative reconstruction technique. PROCEDURE: Oral Contrast: None IV Contrast: 75 mL's of Isovue-370. FINDINGS: The lung bases are clear. The liver, spleen, adrenal glands, and pancreas have an unremarkable appearance. Status post appendectomy. No evidence of abscess. No intestinal obstruction or free air. There are edematous changes of the right kidney at corticomedullary junction. There is a somewhat ill-defined peripheral wedge-shaped area of decreased attenuation/enhancement involving the medial aspect of the right kidney measuring approximate 16 mm. An additional wedge-shaped area of decreased attenuation/enhancement involves the superior aspect of the right kidney posteriorly. These findings are consistent with polynephritis. There is also stranding of the right proximal periureteral fat and mild stranding of the perinephric fat posteriorly on the right and along the proximal right psoas muscle. There is mild prominence of the low density changes of the endometrium not could be related to patient's phase of menstruation. Isodense changes involve both ovaries and could be due to small bilateral cysts measuring up to 2 cm on the left. IMPRESSION: 1. The findings are compatible with right sided polynephritis. 2. Status post appendectomy. No evidence of abscess or free air. 3. Prominent low density changes of the endometrium which may be related to patient's phase of menstruation. Please correlate clinically. Possible small bilateral ovarian cyst Dictated By: Hernán Nevarez MD Signed By: <Electronically signed by Hernán Nevarez MD in [place]> 12/27/17 1133 DD/ 1116 - Physician Consults Physician Consulted: Dr. Belcher Time: 12:15 Reason -: Admission, Pt condition Comment/Response: Advise of patient presentation findings, agreeable with admission. Plan is to continue IV antibiotics, control fever with Motrin Tylenol, continue vigorous IV hydration. - Reevaluation(s) Time: 11:45 Reevaluation #1: Upon reevaluation patient appears medically stable, still in distress, complaining with severe right flank pain, advised patient will need to hospitalize her. General Adult HPI - General Chief complaint: PAIN Stated complaint: Fever;vomiting; Time Seen by Provider: 12/27/17 10:00 Mode of Arrival: Ambulatory Source of Information: Patient Limitations: No Limitations Description of Symptoms (Recalled from ER Triage Doc. by RN): Right flank pain that radiated to her right side. States it hurts to breath. Appendectomy 3 weeks ago. Burning when she urinates. States she had a miscarriage one month ago but has not f/u with her OBGYN - History of Present Illness HPI narrative: Patient is here with his flank pain, fever, nausea and vomiting for the past 3 days, gradually getting worse, unable to hold any solid food or liquids for the past 24 hours. Patient underwent a laparoscopic appendectomy 3 weeks ago, at this hospital, with procedure going uneventfully. Patient also miscarried about the same time, she received Cytotek from OB in [place], and she is having an appointment to follow-up with specialist tomorrow for repeat beta-hCG , to confirm completion of . Patient is concerned with her that she has not passed that much blood, vaginally. MD complaint: Right flank pain Onset (ago): day(s) (3) Location: back Radiation: back Severity: severe Severity scale (1-10): 8 Quality: burning Consistency: intermittent Relieving factors: none Exacerbating factors: movement Associated symptoms: diaphoresis, fever/chills, malaise, weakness Treatments prior to arrival: none - Related Data Home Medications Medication Instructions Recorded Confirmed No Known Home Medications 12/06/17 12/27/17 Allergies Allergy/AdvReac Type Severity Reaction Status Date / Time No Known Allergies Allergy Verified 12/17/17 13:27 [facility] History I have reviewed the patient's past medical history: Yes Medical History: Denies:: Cancer, Diabetes Mellitus Type 1, Diabetes Mellitus Type 2, MRSA, Seizures Other Medical History: Denies: Blood Transfusion Reaction Other Surgeries: Yes: Appendectomy, Dilation and Curettage Amputation: No Fractures: No - Social History Smoking Status: Never smoker Tobacco Type: cigarettes Alcohol Intake: never Alcohol Intake Frequency:: other Substance Use Type: denies use Occupational Status: unemployed Housing: house - Psychiatric History Expresses thoughts of harming self/others: None Suicide Plan Description: No Plan Family Hx:: Heart Attack, Hyperlipidemia, Hypertension ROS Obtained: Yes All systems reviewed & no additional complaints, Yes Systems reviewed as appropriate & no additional complaints - Constitutional Constitutional: Reports body ache, Reports chills, Reports fatigue, Reports fever(s) - Musculoskeletal Musculoskeletal: Reports system reviewed and no additional complaints, except as docu, Reports as per HPI, Reports back pain (Right flank pain) Physical Exam - General General appearance: alert, in distress (Moderate) - Head Head exam: atraumatic, normocephalic, normal inspection - Neck Neck exam: Present: normal inspection, full ROM, trachea midline. Absent: meningismus, lymphadenopathy - Chest Chest inspection: Present: normal inspection, symmetric chest wall rise. Absent : tenderness - Respiratory Respiratory exam: Present: normal lung sounds bilaterally. Absent: respiratory distress - Cardiovascular Cardiovascular exam: Present: regular rate, normal rhythm. Absent: JVD - Abdominal Exam Abdominal exam: Present: soft, tenderness (RLQ), normal bowel sounds. Absent: distention, guarding - Extremities Exam Extremities exam: Present: normal inspection, full ROM, normal capillary refill. Absent: calf tenderness - Back Exam Back exam: Present: normal inspection, full ROM, tenderness, CVA tenderness (R) - Neurological Exam Neurological exam: Present: alert, oriented X3 - Psychiatric Psychiatric exam: Present: normal affect, normal mood - Skin Skin exam: Present: warm, dry, intact, normal color - Lymphatic Lymphatic Findings: no adenopathy
--- NOTE | 2017-12-27 13:17 | Pharmacy Consult Notes ---
[facility] Pharmacy VTE Monitoring - Patient Demographics Admission date: 12/27/17 Report Date: 12/27/17 Time: 13:17 Allergies/Adverse Reactions: Patient Allergies No Known Allergies Allergy (Verified 12/17/17 13:27) Height: 1.5 m Weight: 55.338 kg Patient Problems: Current Active Problems Pyelonephritis (Acute) - VTE Risk Labs: VTE Related Lab Results Hgb 12.3 g/dL (12.2-16.2) 12/27/17 09:50 Hct 38.0 % (37.0-47.0) 12/27/17 09:50 Plt Count 220 K/mm3 (142-424) 12/27/17 09:50 BUN 7 mg/dL (7-18) 12/27/17 09:50 Creatinine 1.01 mg/dL (0.55-1.02) 12/27/17 09:50 Estimated Creat Clear 74 mL/min (0-300) 12/27/17 09:50 - Prophylaxis VTE Prophylaxis Ordered?: Yes Types of VTE Prophylaxis: TEDS Knee High Location of Applied Device: Bilateral Lower Extremeties - VTE Diagnosis Confirmed Treatment or plan recommended: Continue Current Treatment
--- NOTE | 2017-12-27 19:06 | History & Physical Report ---
*Admission Date: 12/27/17 *Chief complaint: Right lower quadrant pain *History of present illness: 27-year-old white female with history of uncomplicated emergent appendectomy approximately 6 weeks ago who was recovering uneventfully when she had a spontaneous miscarriage of an early . She sees gynecology at [facility] in [place] and was scheduled for ultrasound and repeat hCG testing this Wednesday in 2 days from today. However, last night she began to have significant right lower quadrant pain, vomiting and fever. Came to the emergency department. Found to have dirty urine sediment. Found to have a CT scan consistent with pyelonephritis but without evidence of DIRECTOR PAYER pathology or colon pathology on scanning. HCG levels have declined and transvaginal ultrasound showed no evidence of retained products of conception. Because of vomiting and need for IV antibiotics she was admitted to hospital for intravenous fluids and antibiotics. [facility] History I have reviewed the patient's past medical history: Yes Medical History: Denies:: Cancer, Diabetes Mellitus Type 1, Diabetes Mellitus Type 2, MRSA, Seizures Other Medical History: Denies: Blood Transfusion Reaction Other Surgeries: Yes: Appendectomy, Dilation and Curettage, Plastic Surgery Amputation: No Fractures: No - *Social History Educational Level: Completed High School Smoking Status: Never smoker Tobacco Type: cigarettes Alcohol Intake: never Alcohol Intake Frequency:: other Substance Use Type: denies use Occupational Status: unemployed Housing: house Household Members: children - Psychiatric History Expresses thoughts of harming self/others: None Suicide Plan Description: No Plan *Family Hx:: Heart Attack, Hyperlipidemia, Hypertension Review of Systems - Constitutional Reports chills, Reports fever(s), Denies anorexia - Eyes Denies blurry vision, Denies change in vision - ENT Denies poor balance, Denies dizziness - *Cardiovascular Denies chest pain, Denies excessive sweating, Denies shortness of breath, Denies shortness of breath with activity, Denies irregular heart rhythm - *Respiratory Denies change in phlegm color, Denies chest congestion, Denies cough - *Gastrointestinal Reports abdominal pain, Denies change in bowel habits, Denies change in stools, Denies coffee ground vomit, Denies constipation, Denies excessive passing of gas , Denies incontinent of stools - *Genitourinary Comments: See HPI r.e. DIRECTOR PAYER care - *Musculoskeletal Denies joint pain, Denies decreased muscle mass - *Neurologic Denies abnormal walking, Denies abnormal speech, Denies seizure-like activity Meds Home Medications Medication Instructions Recorded Confirmed Type No Known Home Medications 12/06/17 12/27/17 History Allergies Allergy/AdvReac Type Severity Reaction Status Date / Time No Known Allergies Allergy Verified 12/17/17 13:27 Exam Vital signs and Labs for Last 24 Hours: Temp Pulse Resp BP Pulse Ox 98.1 F 58 L 16 102/60 99 12/27/17 16:00 12/27/17 16:00 12/27/17 16:00 12/27/17 16:00 12/27/17 16:00 Laboratory Results - last 24 hr 12/27/17 09:50: Urine Color Yellow, Urine Appearance Cloudy, Urine pH 7.0, Ur Specific [place] 1.015, Urine Protein 1+, Urine Glucose (UA) Negative, Urine Ketones 1+, Urine Blood 1+, Urine Nitrate Positive, Urine Bilirubin Negative, Urine Urobilinogen 2.0, Ur Leukocyte Esterase 2+ A, Urine RBC 5-10, Urine WBC 20 -50, Ur Squamous Epith Cells 5-10, Urine Bacteria 4+ 12/27/17 09:50: WBC 16.4 H, RBC 4.45, Hgb 12.3, Hct 38.0, MCV 85.6, MCH 27.6, MCHC 32.2, RDW 12.6, Plt Count 220, MPV 7.9, Neut % (Auto) 86.1 H, Lymph % (Auto ) 7.3 L, [place] % (Auto) 6.0, Eos % (Auto) 0.5, Baso % (Auto) 0.1, Neut # (Auto) 14.1 H, Lymph # (Auto) 1.2, [place] # (Auto) 1.0, Eos # (Auto) 0.1, Baso # (Auto) 0.0, Total Counted 100, Neutrophils % (Manual) 86 H, Band Neutrophils % 2.0, Lymphocytes % (Manual) 6 L, Monocytes % (Manual) 6, Platelet Estimate Normal 12/27/17 09:50: Sodium 132 L, Potassium 3.4 L, Chloride 95 L, Carbon Dioxide 24 , Anion Gap 16.4 H, BUN 7, Creatinine 1.01, Estimated Creat Clear 74, Estimated GFR 66, Est GFR ( Amer) 80, Glucose 116 H, Calcium 9.4, Total Bilirubin 0.9, AST 10 L, ALT 16, Alkaline Phosphatase 85, Total Protein 7.9, Albumin 3.8, Globulin 4.1 H, Albumin/Globulin Ratio 0.9 L, Amylase 233 H 12/27/17 09:50: Lipase 1338 H 12/27/17 09:50: HCG, Quant 24 H 12/27/17 10:30: Lactic Acid 1.2 I & O for Last 24 hours: Intake & Output 12/25/17 12/26/17 12/27/17 12/28/17 11:59 11:59 11:59 11:59 Intake Total 150 / 150 Balance 150 / 150 Weight 122 lb 121 lb 2 oz Narrative: Patient is alert. Eating supper including potato chips and rice crispy treats. Oropharynx clear. Neurologically intact. No cranial nerve asymmetry. Skin exam is unremarkable at for a host of tattoos with cross and rosary beads and other uatsdin motifs on her shoulders and torso. Rate regular, lungs clear. Abdomen is soft but she has tenderness in the right lower quadrant that radiates back to the right flank. No rebound or guarding. No pedal edema or pulse deficits in her extremities. Moves all extremities well. H&P: Result - Labs Labs: Short CBC 12/27/17 Range/Units 09:50 WBC 16.4 H (4.8-10.8) K/mm3 Hgb 12.3 (12.2-16.2) g/dL Hct 38.0 (37.0-47.0) % Plt Count 220 (142-424) K/mm3 BMP 12/27/17 09:50 Sodium 132 L Potassium 3.4 L Chloride 95 L Carbon Dioxide 24 BUN 7 Creatinine 1.01 Glucose 116 H Calcium 9.4 Liver Function 12/27/17 Range/Units 09:50 Total Bilirubin 0.9 (0.2-1.0) mg/dL AST 10 L (15-37) U/L ALT 16 (12-78) U/L Alkaline Phosphatase 85 (46-116) U/L Albumin 3.8 (3.4-5.0) gm/dL Urine 12/27/17 Range/Units 09:50 Urine Color Yellow (Yellow) Urine Appearance Cloudy (Clear) Urine pH 7.0 (5.0-8.5) Ur Specific [place] 1.015 (1.005-1.030) Urine Protein 1+ (Negative) Urine Glucose (UA) Negative (Negative) Assessment and Plan (1) Pyelonephritis Current visit: Yes Status: Acute Category: Medical Code(s): N12 - Tubulo- interstitial nephritis, not specified as acute or chronic Agree with admission to hospital. Culture results from blood and urine pending. Patient seems to be symptomatically improved with less nausea already.
[2017-12-28 06:51] LABS: Basophils % 0.1 % (0.1-2.0); Eosinophils % 0.1 % (0.1-12.0); Hematocrit 27.3 % (37.0-47.0); Lymphocytes # 1.4 K/mm3 (0.7-4.5); Lymphocytes % 7.6 K/mm3 (10-50); Mean Corpuscular HGB Conc 37.4 g/dL (31.8-35.4); Mean Corpuscular Volume 88.4 fl (81-99); Mean Platelet Volume 8.1 fl (7.4-10.4); Monocytes # 0.9 K/mm3 (0.1-1.0); Monocytes % 5.1 % (1.7-9.3); Neutrophils # 16.1 K/mm3 (1.8-7.8); Neutrophils % 87.2 % (37.0-80.0); Platelet Count 159 K/mm3 (142-424); Red Blood Count 3.09 M/mm3 (4.20-5.40); Red Cell Distribution Width 12.7 % (11.5-17.5); White Blood Count 18.5 K/mm3 (4.8-10.8)
[2017-12-28 07:01] LABS: Albumin Level 2.7 gm/dL (3.4-5.0); Albumin/Globulin Ratio 0.8 (1.1-1.8); Anion Gap 12.3 mEq/L (5-15); Bilirubin,Total 0.4 mg/dL (0.2-1.0); Globulin 3.4 gm/dl (1.3-3.2); Potassium 3.3 mmoL/L (3.5-5.1); Total Protein,Serum 6.1 gm/dL (6.4-8.2)
[2017-12-28 07:08] LABS: Hemoglobin 10.3 g/dL (12.2-16.2)
[2017-12-28 07:12] LABS: Calcium 8.1 mg/dL (8.5-10.1)
--- NOTE | 2017-12-28 08:35 | Progress Note ---
Internal Medicine - PN: Subj *Date: 12/28/17 *Time: 07:30 Interval history: Patient continues to have significant right flank pain. She has not had any further vomiting. She does complain of constipation. Fever curve is improving. Alert and oriented x3. Rate and rhythm regular. No LE edema. Lung sounds clear and equal. + right sided CVA tenderness. RLQ tenderness, no rebound. Exam Vital signs and Labs for Last 24 Hours: Temp Pulse Resp BP Pulse Ox 100.4 F H 105 H 18 104/67 97 12/28/17 07:49 12/28/17 07:49 12/28/17 07:49 12/28/17 07:49 12/28/17 07:49 Laboratory Results - last 24 hr 12/27/17 09:50: Urine Color Yellow, Urine Appearance Cloudy, Urine pH 7.0, Ur Specific [place] 1.015, Urine Protein 1+, Urine Glucose (UA) Negative, Urine Ketones 1+, Urine Blood 1+, Urine Nitrate Positive, Urine Bilirubin Negative, Urine Urobilinogen 2.0, Ur Leukocyte Esterase 2+ A, Urine RBC 5-10, Urine WBC 20 -50, Ur Squamous Epith Cells 5-10, Urine Bacteria 4+ 12/27/17 09:50: WBC 16.4 H, RBC 4.45, Hgb 12.3, Hct 38.0, MCV 85.6, MCH 27.6, MCHC 32.2, RDW 12.6, Plt Count 220, MPV 7.9, Neut % (Auto) 86.1 H, Lymph % (Auto ) 7.3 L, [place] % (Auto) 6.0, Eos % (Auto) 0.5, Baso % (Auto) 0.1, Neut # (Auto) 14.1 H, Lymph # (Auto) 1.2, [place] # (Auto) 1.0, Eos # (Auto) 0.1, Baso # (Auto) 0.0, Total Counted 100, Neutrophils % (Manual) 86 H, Band Neutrophils % 2.0, Lymphocytes % (Manual) 6 L, Monocytes % (Manual) 6, Platelet Estimate Normal 12/27/17 09:50: Sodium 132 L, Potassium 3.4 L, Chloride 95 L, Carbon Dioxide 24 , Anion Gap 16.4 H, BUN 7, Creatinine 1.01, Estimated Creat Clear 74, Estimated GFR 66, Est GFR ( Amer) 80, Glucose 116 H, Calcium 9.4, Total Bilirubin 0.9, AST 10 L, ALT 16, Alkaline Phosphatase 85, Total Protein 7.9, Albumin 3.8, Globulin 4.1 H, Albumin/Globulin Ratio 0.9 L, Amylase 233 H 12/27/17 09:50: Lipase 1338 H 12/27/17 09:50: HCG, Quant 24 H 12/27/17 10:30: Lactic Acid 1.2 12/28/17 06:26: WBC 18.5 H, RBC 3.09 L D, Hgb 10.3 L D, Hct 27.3 L, MCV 88.4, MCH 33.0 H, MCHC 37.4 H, RDW 12.7, Plt Count 159 D, MPV 8.1, Neut % (Auto) 87.2 H, Lymph % (Auto) 7.6 L, [place] % (Auto) 5.1, Eos % (Auto) 0.1, Baso % (Auto ) 0.1, Neut # (Auto) 16.1 H, Lymph # (Auto) 1.4, [place] # (Auto) 0.9, Eos # (Auto ) 0.0, Baso # (Auto) 0.0 12/28/17 06:26: Sodium 138, Potassium 3.3 L, Chloride 104, Carbon Dioxide 25, Anion Gap 12.3, BUN 5 L D, Creatinine 0.87, Estimated Creat Clear 85, Estimated GFR 79, Est GFR ( Amer) 95, Glucose 101, Calcium 8.1 L D, Total Bilirubin 0.4, AST 11 L, ALT 14, Alkaline Phosphatase 72, Total Protein 6.1 L, Albumin 2.7 L D, Globulin 3.4 H, Albumin/Globulin Ratio 0.8 L I & O for Last 24 hours: Intake & Output 12/25/17 12/26/17 12/27/17 12/28/17 11:59 11:59 11:59 11:59 Intake Total 5 / 5 Output Total 250 / 250 Balance 1865 / 1865 Weight 122 lb 121 lb 2 oz Microbiology Reports for the Last 24 Hours: Microbiology 12/27/17 09:50 Urine,Clean Catch Urine Culture - Preliminary Gram Negative Rods Assessment and Plan (1) Pyelonephritis Current visit: Yes Status: Acute Category: Medical Code(s): N12 - Tubulo- interstitial nephritis, not specified as acute or chronic - Assessment and plan all Dx Assessment and Plan for all problems:: Continue broad spectrum antibiotics, urine culture pending. Continue IVF's and pain meds PRN. Fleets enema for constipation. Will consider discharge later today or in the am pending culture and pain control throughout the day.
[2017-12-28 12:29] LABS: Lymphocytes % 6 % (10-50); Monocytes % 4 % (2-9); Neutrophils % 88 % (42-76); Total Cells Counted 100
[2017-12-29 06:54] LABS: Basophils % 0.1 % (0.1-2.0); Eosinophils % 0.4 % (0.1-12.0); Hematocrit 30.4 % (37.0-47.0); Hemoglobin 9.7 g/dL (12.2-16.2); Lymphocytes # 1.4 K/mm3 (0.7-4.5); Lymphocytes % 15.9 K/mm3 (10-50); Mean Corpuscular HGB Conc 31.9 g/dL (31.8-35.4); Mean Corpuscular Hemoglobin 28.2 pg (27.0-31.2); Mean Corpuscular Volume 88.4 fl (81-99); Mean Platelet Volume 8.3 fl (7.4-10.4); Monocytes # 0.5 K/mm3 (0.1-1.0); Monocytes % 5.4 % (1.7-9.3); Neutrophils % 78.2 % (37.0-80.0); Platelet Count 175 K/mm3 (142-424); Red Blood Count 3.44 M/mm3 (4.20-5.40); Red Cell Distribution Width 12.6 % (11.5-17.5)
[2017-12-29 07:05] LABS: Albumin Level 2.3 gm/dL (3.4-5.0); Albumin/Globulin Ratio 0.7 (1.1-1.8); Anion Gap 13.3 mEq/L (5-15); Bilirubin,Total 0.3 mg/dL (0.2-1.0); Calcium 8.3 mg/dL (8.5-10.1); Globulin 3.3 gm/dl (1.3-3.2); Potassium 3.3 mmoL/L (3.5-5.1); Total Protein,Serum 5.6 gm/dL (6.4-8.2)
--- NOTE | 2017-12-29 07:58 | Discharge Summary ---
General - General Admission date:: 12/27/17 Discharge date: 12/29/17 HPI HPI: 27-year-old white female with history of uncomplicated emergent appendectomy approximately 6 weeks ago who was recovering uneventfully when she had a spontaneous miscarriage of an early . She sees gynecology at [facility] in [place] and was scheduled for ultrasound and repeat hCG testing this Wednesday in 2 days from today. However, last night she began to have significant right lower quadrant pain, vomiting and fever. Came to the emergency department. Found to have dirty urine sediment. Found to have a CT scan consistent with pyelonephritis but without evidence of CHOCOLATIER pathology or colon pathology on scanning. HCG levels have declined and transvaginal ultrasound showed no evidence of retained products of conception. Because of vomiting and need for IV antibiotics she was admitted to hospital for intravenous fluids and antibiotics. Hospital Course Hospital Course: Patient was admitted to hospital, placed on intravenous Levaquin. Blood cultures were done which are negative at the time of discharge. Urine culture showed E. coli, pansensitive. CT scan as noted in the HPI showed evidence of pyelonephritis. Patient improved in a stepwise fashion, and belly pain slowly improved. She had an improving fever curve. White count improved dramatically over the last 24 hours. She was found to have some anemia that worsened over her hospital stay, this was felt to be delusional given her significant levels of dehydration on admission and given her recent miscarriage. She has no symptoms of anemia at this point. Plan will be this morning to discharge home with Levaquin therapy. Pushing p.o. fluids. She has no primary care physician. We will see her in our offices in [place] on Wednesday, and at that point she will need a CBC, BMP and physical exam to determine improvement in her pyelonephritis. Objective Vital signs: Temp Pulse Resp BP Pulse Ox 99.5 F 95 H 18 115/51 96 12/29/17 07:42 12/29/17 07:42 12/29/17 07:42 12/29/17 07:42 12/29/17 07:42 Narrative: Patient is awake, alert. Lungs are clear, heart rate regular. Abdomen is soft , much less tenderness than yesterday's exam. Has minimal tenderness with vigorous CVA palpation on the right, left side is totally nontender. She has no edema. No rash. She is well-hydrated and oriented 3. Results Labs on day of discharge: Labs from last 24 hours 12/29/17 12/29/17 12/28/17 06:41 06:41 06:26 WBC 9.0 D RBC 3.44 L Hgb 9.7 L Hct 30.4 L MCV 88.4 MCH 28.2 MCHC 31.9 RDW 12.6 Plt Count 175 MPV 8.3 Neut % (Auto) 78.2 Lymph % (Auto) 15.9 [place] % (Auto) 5.4 Eos % (Auto) 0.4 Baso % (Auto) 0.1 Neut # (Auto) 7.0 Lymph # (Auto) 1.4 [place] # (Auto) 0.5 Eos # (Auto) 0.0 Baso # (Auto) 0.0 Total Counted 100 Neutrophils % (Manual) 88 H Band Neutrophils % 2.0 Lymphocytes % (Manual) 6 L Monocytes % (Manual) 4 Platelet Estimate Normal RBC Morphology Not Reportable Sodium 141 Potassium 3.3 L Chloride 108 H Carbon Dioxide 23 Anion Gap 13.3 BUN 3 L D Creatinine 0.66 D Estimated Creat Clear 112 Estimated GFR 108 Est GFR ( Amer) 131 D Glucose 95 Calcium 8.3 L Total Bilirubin 0.3 AST 8 L D ALT 12 Alkaline Phosphatase 73 Total Protein 5.6 L Albumin 2.3 L D Globulin 3.3 H Albumin/Globulin Ratio 0.7 L DS: Diagnosis - Discharge Diagnosis (1) Pyelonephritis Status: Acute Discharge Plan - Patient Discharge Instructions ACTIVITY: Continue current activity DIET: continue same diet - Follow up Plan Follow up with: Casandra Galarza APRN [Nurse Practitioner] - 01/03/18 Disposition: Home, Self-Care Prescriptions/Medication Reconciliation: No Action No Known Home Medications
== END 2017-12-29 13:15 | disposition home or self-care (01) ==
LOC: ER 09:34 → 2ND 12:14
PROVIDERS: ADMIT Internal Medicine Adolescent Medicine; ATTEND Internal Medicine Adolescent Medicine
DX: O03.0 Genital tract and pelvic infection following incomplete spontaneous abortion

== ENCOUNTER 2020-08-24 14:46 | Emergency (ER) | payer MEDICAID, SELFPAY ==
[2020-08-24 15:00] VITALS: BP 147/99; PULSE 98; RESP 14; TEMP 36.7; O2SAT 99; BMI 30.2
--- NOTE | 2020-08-24 15:26 | HMH.EDUTC ---
[facility] [place] Dis[place] Clinical Impression: COVID-19 virus test result unknown Disposition: Home, Self-Care Condition on Discharge: Good Instructions: DI for COVID-19 (Suspected or Confirmed ), Preventing the Spread of Coronavirus Discharge Instructions Additional Instructions: increase fluids tylenol for pain or fever follow up with pcp self isolate until test results are known to be neg if symptoms worsen or do not improve return or be seen in ed Referrals: PCP,No [Primary Care Provider] - Time of Disposition: 15:30 Medical Decision Making - Nasim Inquiry Pt receiving controlled substance: No Orders (Tests/Meds): ORDERS Category Date Time Status Covid-19 Nasal PCR ([facility]) Routine Lab 08/24/20 15:10 Received [facility] [place] HPI - General Chief complaint: [facility] Stated complaint: No taste or smell;Congested Time Seen by Provider: 08/24/20 15:26 Mode of Arrival: Ambulatory Source of Information: Patient Limitations: No Limitations - History of Present Illness Provider Complaint: 30 yr old female presents for loss of taste and smell that started today. pt states she is 24 weeks . no other s/s - Related Data Previous Rx's Medication Instructions Recorded levoFLOXacin [Levaquin 500mg 500 mg PO DAILY #5 tab 12/29/17 tab] Allergies Allergy/AdvReac Type Severity Reaction Status Date / Time No Known Allergies Allergy Verified 12/17/17 13:27 [facility] History - Hepatitis A Screen Attestation statement:: This patient has been screened for Hepatitis A risk factors. I have reviewed the patient's past medical history: Yes Medical History: Denies:: Cancer, Diabetes Mellitus Type 1, Diabetes Mellitus Type 2, MRSA, Seizures Other Medical History: Denies: Blood Transfusion Reaction Other Surgeries: Yes: Appendectomy, Dilation and Curettage, Plastic Surgery Amputation: No Fractures: No - Social History Smoking Status: Never smoker Tobacco Type: cigarettes Alcohol Intake: never Alcohol Intake Frequency:: other Substance Use Type: denies use Occupational Status: unemployed Housing: house Household Members: children Family Hx:: Heart Attack, Hyperlipidemia, Hypertension ROS Obtained: Yes Systems reviewed as appropriate & no additional complaints - Constitutional Constitutional: Reports system reviewed and no additional complaints, except as docu, Denies chills, Denies fever(s) - Eyes Eyes: Reports system reviewed and no additional complaints, except as docu, Denies change in vision - ENT Ears, Nose, Mouth, and Throat: Reports system reviewed and no additional complaints, except as docu, Denies sore throat, Reports other - Cardiovascular Cardiovascular: Reports system reviewed and no additional complaints, except as docu, Denies chest pain - Respiratory Respiratory: Reports system reviewed and no additional complaints, except as docu, Denies change in phlegm color - Gastrointestinal Gastrointestingal: Reports: system reviewed and no additional complaints, except as docu. Denies: nausea, vomiting - Genitourinary Female Genitourinary: Reports system reviewed and no additional complaints, except as docu, Denies nocturia - Musculoskeletal Musculoskeletal: Reports system reviewed and no additional complaints, except as docu, Denies joint pain - Integumentary/Breasts Skin/Breast: Reports system reviewed and no additional complaints, except as docu, Denies rash - Neurologic Neurologic: Reports system reviewed and no additional complaints, except as docu, Denies dizziness - Endocrine Endocrine: Reports system reviewed and no additional complaints, except as docu, Denies fatigue - Hematologic/Lymphatic Henatologic/Lymphatic: Reports system reviewed and no additional complaints, except as docu, Denies easy bruising - Allergic/Immunologic Allergic/Immunologic: Reports system reviewed and no additional complaints, except as docu, Denies itchy eyes Physical Exam -
[2020-08-24 15:47] VITALS: BP 147/99; PULSE 98; RESP 14; TEMP 36.7; O2SAT 99
--- NOTE | 2020-08-24 18:13 | PC.NURSE ---
patient notified of positive covid results
== END 2020-08-24 15:48 | disposition home or self-care (01) ==
PROVIDERS: Emergency Provider Nurse Practitioner Family
DX: U07.1 COVID-19 (principal); Z3A.24 24 weeks gestation of pregnancy
CPT/HCPCS: 99202; G0463; U0003

== ENCOUNTER → 2020-09-30 13:04 | Outpatient (CLI) | payer MEDICAID, SELFPAY | PROVIDERS: Visit Provider Nurse Practitioner Obstetrics & Gynecology | DX: O26.893 Other specified pregnancy related conditions, third trimester (principal); Z3A.30 30 weeks gestation of pregnancy; R10.30 Lower abdominal pain, unspecified ==

== ENCOUNTER 2020-09-30 13:14 | Outpatient (CLI) | payer MEDICAID, SELFPAY ==
[2020-09-30] VITALS (10 sets, daily range): BP systolic 140–177; BP diastolic 89–111; PULSE 81; RESP 20; TEMP 37.1; O2SAT 97; BMI 29.9
[2020-09-30 14:36] LABS: Microscopic, Urine URINE MICROSCOPIC (MICROSCOPIC)
[2020-09-30 14:38] LABS: Appearance,Urine SL CLOUDY (Clear); Bilirubin,Urine Negative (Negative); Blood, Urine Negative (Negative); Color,Urine YELLOW (Yellow); Glucose,Urine (UA) Negative (Negative); Ketones,Urine Negative (Negative); Leukocyte Esterase,Urine Negative (Negative); Nitrate,Urine Negative (Negative); Protein,Urine Negative (Negative); Urobilinogen,Urine 0.2 EU/dl (0.2)
[2020-09-30 14:52] LABS: Amphetamine/Metha Screen,Urine Negative ng/ml (<1000)
[2020-09-30 14:53] LABS: Barbiturates Screen,Urine Negative ng/ml (<200); Benzodiazepines Screen,Urine Negative ng/ml (<200)
[2020-09-30 14:54] LABS: Cannabinoid Screen,Urine Negative ng/ml (<50); Cocaine Screen,Urine Negative ng/ml (<300)
[2020-09-30 14:55] LABS: Methadone Screen,Urine Negative ng/ml (<300)
[2020-09-30 14:56] LABS: Opiate Screen,Urine Negative ng/ml (<300); Phencyclidine Screen,Urine Negative ng/ml (<25)
[2020-09-30 15:01] LABS: WBC,Urine Occasional #/hpf (0-3)
--- NOTE | 2020-09-30 16:49 | P.PN_ITS ---
Internal Medicine - PN: Subj *Date: 09/30/20 *Time: 16:49 Interval history: She is a 30-year-old 11 para 2 who has a history of -induced hypertension. She said that she was having some lower abdominal pain and came into labor and delivery. She apparently was here with her mother who was seeing a doctor here in [place]. Rita is being followed at [facility] by fifth grade teacher. She has a history of -induced hypertension in her first and lost her baby at 24 weeks. She delivered her last baby at 32 weeks because of PIH. She says that she always has chronic hypertension and she is not taking any medication for this. She did start a baby aspirin recently. Today she is not having any contractions but her blood pressure is severely elevated. At times it has been 170+/90+. At times the diastolic is over 100. She denies any headache. She denies any scotomata. She says that she does have whitecoat syndrome and her blood pressure is elevated around hospitals. She has rested for the last couple of hours and her blood pressure has remained elevated. I suspect she has chronic hypertension with superimposed - induced hypertension. Exam Vital signs and Labs for Last 24 Hours: Temp Pulse Resp BP Pulse Ox 98.8 F 81 20 146/91 H 97 09/30/20 13:20 09/30/20 13:20 09/30/20 13:20 09/30/20 14:40 09/30/20 13:20 Laboratory Results - last 24 hr 09/30/20 14:30: Urine Color Yellow, Urine Appearance Sl cloudy, Urine pH 7.0, Ur Specific [place] 1.010, Urine Protein Negative, Urine Glucose (UA) Negative, Urine Ketones Negative, Urine Blood Negative, Urine Nitrate Negative, Urine Bilirubin Negative, Urine Urobilinogen 0.2, Ur Leukocyte Esterase Negative, Urine RBC None, Urine WBC Occasional, Ur Squamous Epith Cells 5-10, Urine Bacteria None 09/30/20 14:30: Urine Opiates Screen Negative, Urine Methadone Screen Negative, Ur Barbituates Screen Negative, Ur Phencyclidine Scrn Negative, Ur Amphetamines Screen Negative, U Benzodiazepines Scrn Negative, Urine Cocaine Screen Negative, U Marijuana (THC) Screen Negative I & O for Last 24 hours: Intake & Output 09/28/20 09/29/20 09/30/2009/21 11:59 11:59 11:59 11:59 Weight 148 lb - Constitutional no acute distress - *Routine HEENT Exam Head: Present: normocephalic Eye: Present: EOMI, PERRL ENT: Present: mucous membranes moist - *Routine Neurological Exam Present: alert, oriented X3 Her reflexes were extremely brisk. She had 2 beats of clonus. Assessment and Plan (1) Severe preeclampsia Status: Acute Category: Medical Code(s): O14.10 - Severe pre-eclampsia, unspecified trimester - Assessment and plan all Dx Assessment and Plan for all problems:: I suspect that she has severe preeclampsia. I gave her 1 dose of nifedipine 10 mg and it did not really lower her blood pressure at all. I had wanted to start her on magnesium sulfate and transfer her to [facility]. She refused magnesium sulfate. She wants her mother to take her down to [facility]. I told her that I would send her in an ambulance which would be preferable but she refused this. We will call [facility] and let them know she is on her way down there. I told her mother that she really needs to get down there as soon as possible. The patient says she wanted to go home first. I had her sign an AMA form as well for refusal of magnesium sulfate and ambulance transport.
== END 2020-09-30 16:43 | disposition left against medical advice (07) ==
LOC: OBOUT 13:15 → OB 13:16
PROVIDERS: Visit Provider Nurse Practitioner Obstetrics & Gynecology
DX: O26.893 Other specified pregnancy related conditions, third trimester (principal); Z3A.30 30 weeks gestation of pregnancy; R10.30 Lower abdominal pain, unspecified
CPT/HCPCS: 59025; 80305; 81001; G0463

== ENCOUNTER 2021-02-25 16:36 | Emergency (ER) | payer MEDICAID, SELFPAY ==
[2021-02-25 17:19] VITALS: BP 123/76; PULSE 121; RESP 21; TEMP 37.1; O2SAT 98; BMI 26.9
[2021-02-25 17:24] LABS: Adenovirus,PCR Not Detected (NotDetected); Bordetella Pertussis Not Detected (NotDetected); Chlamydophila Pneumoniae, PCR Not Detected (NotDetected); Coronavirus 19, PCR Not Detected (NotDetected); Coronavirus 229E Not Detected (NotDetected); Coronavirus NL63 Not Detected (NotDetected); Coronavirus OC43 Not Detected (NotDetected); Coronovirus HKU1,PCR Not Detected (NotDetected); Human Metapneumovirus Not Detected (NotDetected); Influenza A, PCR Not Detected (NotDetected); Influenza AH1, 2009 Not Detected (NotDetected); Influenza AH1, PCR Not Detected (NotDetected); Influenza AH3,PCR Not Detected (NotDetected); Influenza B, PCR Not Detected (NotDetected); Mycoplasma Pneumoniae, PCR Not Detected (NotDetected); Parainfluenza 1, PCR Not Detected (NotDetected); Parainfluenza 2, PCR Not Detected (NotDetected); Parainfluenza 3, PCR Not Detected (NotDetected); Parainfluenza 4, PCR Not Detected (NotDetected); Rhinovirus/Enterovirus Not Detected (NotDetected)
[2021-02-25 17:36] LABS: UTC Strep Screen (Rapid) Negative (Negative)
--- NOTE | 2021-02-25 17:57 | HMH.EDUTC ---
[facility] [place] Clinical Impression: Viral upper respiratory illness Disposition: Home, Self-Care Condition on Discharge: Good Instructions: DI for Viral Upper Respiratory Infection -- Adult, Sore Throat Additional Instructions: *Monitor Temp, Over the counter Motrin or Tylenol as directed/as needed Tylenol every 4 hours and Motrin every 6 hours (as long as your family doctor has told you that you can take it) for fever or pain. and straight to ER if unable to lower temp less than 101.0 after medication given *Warm salt water gargles may help to soothe the throat *Throat Lozenges *Warm fluids like tea with honey may help to soothe the throat *Sleep elevated *Humidifier/Vaporizer *Flonase 2 sprays in each nostril daily but be aware that it may take 2-3 days before you notice improvement Your throat swab was sent for culture. Those results are typically sent to your primary care. Be sure to follow up in 2-3 days with your family doctor/primary care physician if no improvement so they can review those result and treat if necessary. If you don?t have a primary care doctor, I recommend you get one but in the mean time, you will have to return to a walk in clinic Follow up IMMEDIATELY for new or worsening symptoms or no Noticeable improvement over the next 48-72 hours. 911 for difficulty breathing or swallowing You were tested for today for COVID19 your test result should be back in the next 24-48 hours, you may call to the [facility] to see if your test results are back in the next 48 hours [phone] [facility] hours are 9am-9pm You was given a handout with instructions for Self Quarantine and Self isolation for while you wait on test results and what to do if they are positive If you are positive the Health Dept will be contacting you also Prescriptions: Fluticasone Propionate [Flonase 50mcg nasal spray 16gm] 1 spr NS DAILY #1 bottle Transmission Status: Pending to Clinic [facility] Referrals: Provider,Referral, [Primary Care Provider] - As needed Time of Disposition: 18:00 Medical Decision Making - Nasim Inquiry Pt receiving controlled substance: No Nasim was queried for this patient: No Vital Signs: 02/25/21 17:19 Temperature 98.8 F Temperature Source Oral Pulse Rate [Apical] 121 H Respiratory Rate 21 Blood Pressure [Right Arm] 123/76 Blood Pressure Mean [Right Arm] 91 Blood Pressure Source [Right Arm] Automatic Cuff Blood Pressure Position [Right Arm] Sitting 02 Sat by Pulse Oximetry 98 Oxygen Delivery Method Room Air - Lab Data Lab results reviewed: Yes: I reviewed the patient's lab results. Lab Results 02/25/21 17:19: Strep Scn Rapid Clinic Negative Orders (Tests/Meds): ORDERS Category Date Time Status Full Resp Panel w/COVID ([facility]) Routine Lab 02/25/21 17:12 Received Strep Screen Confirmation Stat Micro 02/25/21 17:19 [place] [facility] [place] - General Stated complaint: covid test Time Seen by Provider: 02/25/21 17:57 Mode of Arrival: Ambulatory Source of Information: Patient Limitations: No Limitations Description of Symptoms (Recalled from Triage Doc. by RN): runny nose, cough sore throat HEENT Symptoms (Recalled from RN notes): No Resp Symptoms (Recalled from RN notes): No Skin Symptoms (Recalled from RN notes): No MS Symptoms (Recalled from RN notes): No Functional Status (Recalled from RN notes): na - History of Present Illness Provider Complaint: Patient states that she has been having runny nose and sore throat since yesterday and they sent her home from work State that her mother recently had strep throat and both her children have a Viral upper respiratory virus States that they told her that she had to come in and get a COVID test before she can return to work so she came in to get tested - Related Data Previous Rx's Medication Instructions Recorded levoFLOXacin [Levaquin 500mg 500 mg PO DAILY #5 tab 12/29/17 tab] Fluticasone Propionate [Flonase 1 spr NS BESS
[2021-02-25 18:15] VITALS: BP 123/76; PULSE 121; RESP 21; TEMP 37.1; O2SAT 98
[2021-02-26 01:14] LABS: Respiratory Syncytial Virus Detected (NotDetected)
== END 2021-02-25 18:05 | disposition home or self-care (01) ==
PROVIDERS: Emergency Provider Nurse Practitioner
DX: J06.9 Acute upper respiratory infection, unspecified (principal); B97.4 Respiratory syncytial virus as the cause of diseases classified elsewhere; Z20.822 Contact with and (suspected) exposure to COVID-19
CPT/HCPCS: 87581; 87633; 87798; 87880; 99202; G0463

== ENCOUNTER 2021-03-21 13:32 | Emergency (ER) | payer MEDICAID, SELFPAY ==
[2021-03-21 14:50] VITALS: BP 156/101; PULSE 152; RESP 22; TEMP 36.9; O2SAT 99; BMI 26.4
--- NOTE | 2021-03-21 15:01 | HMH.EDUTC ---
[facility] – [place] Disposition Clinical Impression: RSV (acute bronchiolitis due to respiratory syncytial virus), Exposure to COVID-19 virus Disposition: Home, Self-Care Condition on Discharge: Good Instructions: DI for COVID-19 (Suspected or Confirmed ), Preventing the Spread of Coronavirus Discharge Instructions Additional Instructions: Drink plenty of fluids. Take tylenol for pain or fever. Follow up with your regular doctor. GO TO THE ER FOR ANY WORSENING SYMPTOMS Quarantine until you know the results of your covid-19 test. If it is positive, the health department should call you and give you further instructions about your length of Quarantine and other things. Notify your school or workplace of your results and follow their instructions regarding return to work/school. Referrals: Provider,Referral, [Primary Care Provider] - Time of Disposition: 15:32 Medical Decision Making - Medical Records Medical records reviewed: No: I reviewed the patient's medical records. - Nasim Inquiry Pt receiving controlled substance: No Vital Signs: 03/21/21 14:50 03/21/21 15:30 Temperature 98.5 F 98.5 F Temperature Source Oral Pulse Rate 147 H Pulse Rate [Right Brachial] 152 H Respiratory Rate 22 22 Blood Pressure 156/101 H Blood Pressure [Right Arm] 156/101 H Blood Pressure Mean [Right Arm] 119 Blood Pressure Source [Right Arm] Automatic Cuff Blood Pressure Position [Right Arm] Sitting 02 Sat by Pulse Oximetry 99 Oxygen Delivery Method Room Air Orders (Tests/Meds): ORDERS Category Date Time Status Full Resp Panel w/COVID ([facility]) Routine Lab 03/21/21 14:35 Received [facility] [place] HPI - General Stated complaint: covid test Time Seen by Provider: 03/21/21 15:01 - History of Present Illness Provider Complaint: She states that she was sick with RSV last week. She has been off work because she felt very bad with that. Now, she is essentially better and would like to go back to work, but she needs a negative covid test before she is allowed to return. She denies any complaints today except that she is very nervous from having to wait for results on the covid test. - Related Data Previous Rx's Medication Instructions Recorded levoFLOXacin [Levaquin 500mg 500 mg PO DAILY #5 tab 12/29/17 tab] Fluticasone Propionate [Flonase 1 spr NS DAILY #1 bottle 02/25/21 50mcg nasal spray 16gm] Allergies Allergy/AdvReac Type Severity Reaction Status Date / Time No Known Allergies Allergy Verified 12/17/17 13:27 [facility] History - Hepatitis A Screen Attestation statement:: This patient has been screened for Hepatitis A risk factors. I have reviewed the patient's past medical history: Yes Medical History: Denies:: Cancer, Diabetes Mellitus Type 1, Diabetes Mellitus Type 2, MRSA, Seizures Other Medical History: Denies: Blood Transfusion Reaction Other Surgeries: Yes: Appendectomy, , Dilation and Curettage, Plastic Surgery Amputation: No Fractures: No - Social History Smoking Status: Never smoker Tobacco Type: cigarettes Alcohol Intake: never Alcohol Intake Frequency:: other Substance Use Type: denies use Occupational Status: employed Housing: house Household Members: children Family Hx:: Heart Attack, Hyperlipidemia, Hypertension ROS Obtained: Yes All systems reviewed & no additional complaints - Constitutional Constitutional: Reports system reviewed and no additional complaints, except as docu - Eyes Eyes: Reports system reviewed and no additional complaints, except as docu - ENT Ears, Nose, Mouth, and Throat: Reports system reviewed and no additional complaints, except as docu - Cardiovascular Cardiovascular: Reports system reviewed and no additional complaints, except as docu - Respiratory Respiratory: Reports system reviewed and no additional complaints, except as docu - Gastrointestinal Gastrointestingal: Reports: system reviewed and no additional complaints,
--- NOTE | 2021-03-21 15:03 | XR_ITS ---
PROCEDURE: XR CHEST 2V CLINICAL HISTORY: COUGH COMPARISON: CR CXR CHEST(2 VIEWS-NOT PORTABLE) from 04/05/2016 CR CXR CHEST(2 VIEWS-NOT PORTABLE) from 09/29/2016 CR CXR2V XR chest 2V from 12/27/2017 FINDINGS: The cardiomediastinal silhouette and pulmonary vascularity are within normal limits. The lungs are clear without infiltrates, suspicious nodules, or pleural effusions. There is mild lower thoracic curvature convex left No acute bony abnormalities. IMPRESSION: No acute findings. Dictated by: Hernán Nevarez MD 03/21/2021 15:12 Henrán Nevarez MD in [place] 03/21/2021 15:12
[2021-03-21 15:30] VITALS: BP 156/101; PULSE 147; RESP 22; TEMP 36.9; O2SAT 99
[2021-03-21 19:48] LABS: Adenovirus,PCR Not Detected (NotDetected); Bordetella Pertussis Not Detected (NotDetected); Chlamydophila Pneumoniae, PCR Not Detected (NotDetected); Coronavirus 19, PCR Not Detected (NotDetected); Coronavirus 229E Not Detected (NotDetected); Coronavirus NL63 Not Detected (NotDetected); Coronavirus OC43 Not Detected (NotDetected); Coronovirus HKU1,PCR Not Detected (NotDetected); Human Metapneumovirus Not Detected (NotDetected); Influenza A, PCR Not Detected (NotDetected); Influenza AH1, 2009 Not Detected (NotDetected); Influenza AH1, PCR Not Detected (NotDetected); Influenza AH3,PCR Not Detected (NotDetected); Influenza B, PCR Not Detected (NotDetected); Mycoplasma Pneumoniae, PCR Not Detected (NotDetected); Parainfluenza 1, PCR Not Detected (NotDetected); Parainfluenza 2, PCR Not Detected (NotDetected); Parainfluenza 3, PCR Not Detected (NotDetected); Parainfluenza 4, PCR Not Detected (NotDetected); Respiratory Syncytial Virus Not Detected (NotDetected)
[2021-03-23 14:05] LABS: Rhinovirus/Enterovirus Detected (NotDetected)
== END 2021-03-21 15:35 | disposition home or self-care (01) ==
PROVIDERS: Emergency Provider Nurse Practitioner Family
DX: Z20.822 Contact with and (suspected) exposure to COVID-19 (principal); B97.4 Respiratory syncytial virus as the cause of diseases classified elsewhere
CPT/HCPCS: 71046; 87581; 87633; 87798; 99202; G0463